=== PATIENT | male | born 1960 | race Caucasian/White ===

== ENCOUNTER → 2019-11-16 09:17 | Outpatient (BNVA) | payer MEDICAID, SELFPAY | PROVIDERS: PCP Nurse Practitioner Family; Visit Provider Specialist | DX: G40.219 Localization-related (focal) (partial) symptomatic epilepsy and epileptic syndromes with complex partial seizures, intractable, without status epilepticus (principal) | CPT/HCPCS: 99213 ==

== ENCOUNTER → 2020-05-23 08:23 | Outpatient (BNVA) | payer MEDICAID, SELFPAY | PROVIDERS: PCP Nurse Practitioner Family; Visit Provider Specialist | DX: G40.219 Localization-related (focal) (partial) symptomatic epilepsy and epileptic syndromes with complex partial seizures, intractable, without status epilepticus (principal) | CPT/HCPCS: 99213 ==

== ENCOUNTER 2020-10-27 15:57 | Emergency (ER) | payer MEDICAID, SELFPAY ==
[2020-10-27 16:05] VITALS: BP 163/75; PULSE 78; RESP 14; TEMP 36.9; O2SAT 99; BMI 32.4
--- NOTE | 2020-10-27 17:14 | XRR_ITS ---
PROCEDURE INFORMATION: Exam: XR Left Hip with Pelvis when Performed Exam date and time: 10/27/2020 5:42 PM Age: 60 years old Clinical indication: Hip pain; Left hip TECHNIQUE: Imaging protocol: XR Left hip with pelvis when performed. Views: 2 or 3 views. COMPARISON: CR Pelvis AP 1 or 2 views* [id number] 12/09/2018 3:13 PM FINDINGS: Bones/joints: Mild narrowing of the hip joint spaces. There are small marginal osteophytes across the hip joints. Soft tissues: Unremarkable. XR/XR hip LT 2-3V wo/w pel* [id number] IMPRESSION: There are primary osteoarthritic changes across the hip joints as described above. No evidence for acute fracture.
--- NOTE | 2020-10-27 17:14 | XRR_ITS ---
PROCEDURE INFORMATION: Exam: XR Left Knee Exam date and time: 10/27/2020 5:42 PM Age: 60 years old Clinical indication: Pain; Knee; Left TECHNIQUE: Imaging protocol: XR Left knee. Views: 3 views. COMPARISON: MRI Knee w/o LEFT* [id number] 05/14/2017 3:47 PM FINDINGS: Bones/joints: Fragmentation of the tibial tubercle is consistent with chronic [place]-Schlatter's disease. There are small marginal osteophytes across the medial joint compartment and patellofemoral joint. Soft tissues: There is pretibial soft tissue edema. XR/XR knee LT 3V* [id number] IMPRESSION: 1. Fragmentation of the tibial tubercle is consistent with chronic [place]-Schlatter's disease. There is pretibial soft tissue edema as well raising concern for acute on chronic Sagrario-Schlatter findings. Please correlate clinically. 2. There are primary osteoarthritic changes across the patellofemoral joint and medial joint compartment.
--- NOTE | 2020-10-27 17:14 | ED_ITS ---
HPI - Extremity Problem General: Chief complaint: Extremity Problem,Nontraumatic Stated complaint: Lt leg pain/no trama Time Seen by Provider: 10/27/20 17:03 Source: patient Mode of arrival: wheelchair Limitations: no limitations History of Present Illness: HPI Narrative: Patient is a 60-year-old male who presents to ED today for evaluation of left leg pain. He tells me he woke up this morning with pain to his posterior thigh. Patient tells me he was carrying wood and had just bent down and picked wood up and began walking when he states that his left leg felt like it was hit with a stun gun causing him to fall. He states when he got up and tried to walk he began having pain in the knee, posterior aspect of his thigh, and hip. Patient is not complaining currently of numbness/tingling or weakness. He does tell me he is being treated for sciatica in that left leg by his PCP Dr. Spicer. He states this feels different. He has not noticed any swelling. MD Complaint: extremity pain Onset (ago): hour(s) Pain Consistency: constant Location: left and lower extremity Radiation: none Relieving factors: immobilization Exacerbating factors: weight bearing and walking Associated symptoms: Reports no associated symptoms; Deny chest pain or fever(s) Review of Systems Const: Denies: fever(s) or chills Card: Denies: chest pain Resp: Denies: dyspnea Musc: Reports: extremity pain; Denies: neck pain, back pain, extremity swelling, joint pain, joint swelling, joint stiffness or muscle weakness Neuro: Denies: headache(s), numbness in extremities, weakness in extremities, sensory changes or dizziness [facility] ED PFSH: Family History Other CAD (coronary artery disease) Cancer Hypertension Denies family history of Diabetes Stroke Social History Smoking and tobacco status: never smoked Alcohol intake: current Alcohol intake frequency: few times a month History of recent travel: No Physical Exam Const: COMMON NORMALS: no acute distress, average body habitus, patient oriented x3, no limitations, healthy appearing, alert and well nourished GENERAL APPEARANCE: cooperative ORIENTATION/CONSCIOUSNESS: Yes awake, Yes oriented to person, Yes oriented to place and Yes oriented to time HENMT: COMMON NORMALS: normocephalic and atraumatic HEAD & SCALP: normocephalic and atraumatic Back/Pelvis: COMMON NORMALS: thoracic and lumbar spine normal to inspection, no thoracic nor lumbar tenderness and thoraco-lumbar ROM normal THORACIC SPINE/UPPER BACK: Yes normal to inspection and Yes thoracic ROM normal LUMBAR SPINE/LOWER BACK: Yes normal to inspection and Yes lumbar ROM normal PELVIS: Yes buttocks normal SACROILIAC JOINTS: Yes SI joints normal Extremity: COMMON NORMALS: normal to inspection and full ROM GENERAL: Yes normal exam except as noted OTHER: pt reports pain to knee/hip/posterior thigh; he does not have any SI tenderness; there is no swelling appreciated/no bruising; when he stands and puts pressure on his leg he states he feels like his knee is going to buckle Neuro: COMMON NORMALS: patient oriented x3, moves all extremities, no focal motor deficits and no sensory deficits noted SENSORIUM/ORIENTATION: Yes alert, Yes oriented to person, Yes oriented to place and Yes oriented to time MOTOR EXAM: 5/5 motor strength present throughout Skin: COMMON NORMALS: no rashes or lesions noted GENERAL SKIN EXAM: no rashes or lesions noted Course Vital Signs: Vital signs: Vital Signs Temperature 98.5 F 10/27/20 16:05 Pulse Rate 76 10/27/20 18:34 Respiratory Rate 18 10/27/20 18:34 Blood Pressure 146/85 10/27/20 18:34 Pulse Oximetry 98 10/27/20 18:34 MDM - Extremity (Nontraumatic) MDM Narrative: Medical decision making narrative: Pt has no swelling to leg. XRs are negative for fracture. Sensory intact. Patient maintains full strength to LE. He states he has no pain if he walks on the ball of his foot/heel. He states he has a cane but that isn't providing enough support. Patient will be provided a walker. He has a PCP appointment on Thursday he can use to follow up with. Imaging Data^: XR L knee: Radiologist's impression: [facility] [address] [place] [address] XRay Report Signed Patient: Kings Kothari Unit #: [id number] : 1960 Age/Sex: 60 / M ADM Date: 10/27/20 Loc: ER Room/Bed: Attending Dr: Ordering Provider/Ordering MD: Adrianne Way Date of Service: 10/27/20 Procedure(s): XR knee LT 3V* [id number] Accession Number(s): [id number] Report Number: [id number] PROCEDURE INFORMATION: Exam: XR Left Knee Exam date and time: 10/27/2020 5:42 PM Age: 60 years old Clinical indication: Pain; Knee; Left TECHNIQUE: Imaging protocol: XR Left knee. Views: 3 views. COMPARISON: MRI Knee w/o LEFT* [id number] 05/14/2017 3:47 PM FINDINGS: Bones/joints: Fragmentation of the tibial tubercle is consistent with chronic Midlothian-Schlatter's disease. There are small marginal osteophytes across the medial joint compartment and patellofemoral joint. Soft tissues: There is pretibial soft tissue edema. XR/XR knee LT 3V* [id number] IMPRESSION: 1. Fragmentation of the tibial tubercle is consistent with chronic Midlothian-Schlatter's disease. There is pretibial soft tissue edema as well raising concern for acute on chronic Midlothian-Schlatter findings. Please correlate clinically. 2. There are primary osteoarthritic changes across the patellofemoral joint and medial joint compartment. Dictated By: Hazel Alarcon MD Signed By: Hazel Alarcon MD Signed Date/Time: 10/27/201823 DD/ 22 XR L hip: Radiologist's impression: [address] [address] XRay Report Signed Patient: Kings Kothari Unit #: [id number] : 1960 Age/Sex: 60 / M ADM Date: 10/27/20 Loc: ER Room/Bed: Attending Dr: Ordering Provider/Ordering MD: Adrianne Way Date of Service: 10/27/20 Procedure(s): XR hip LT 2-3V wo/w pel* [id number] Accession Number(s): [id number] Report Number: [id number] PROCEDURE INFORMATION: Exam: XR Left Hip with Pelvis when Performed Exam date and time: 10/27/2020 5:42 PM Age: 60 years old Clinical indication: Hip pain; Left hip TECHNIQUE: Imaging protocol: XR Left hip with pelvis when performed. Views: 2 or 3 views. COMPARISON: CR Pelvis AP 1 or 2 views* [id number] 12/09/2018 3:13 PM FINDINGS: Bones/joints: Mild narrowing of the hip joint spaces. There are small marginal osteophytes across the hip joints. Soft tissues: Unremarkable. XR/XR hip LT 2-3V wo/w pel* [id number] IMPRESSION: There are primary osteoarthritic changes across the hip joints as described above. No evidence for acute fracture. Dictated By: Hazel Alarcon MD Signed By: Hazel Alarcon MD Signed Date/Time: 10/27/201819 DD/ 18 Discharge Plan Discharge Patient Disposition: Home Clinical Impression: Muscle strain of left thigh Qualifiers: Encounter type: initial encounter Qualified Code(s): S76.912A - Strain of unspecified muscles, fascia and tendons at thigh level, left thigh, initial encounter Condition: Stable Prescriptions: New ibuprofen 800 mg tablet 800 mg PO Q8H PRN (Reason: pain) Qty: 20 RF: 0 Medrol (Jordy) 4 mg tablets,dose pack See Rx Instructions .ROUTE .COMPLEX Qty: 21 RF: 0 No Action aspirin [Aspir-81] 81 mg tablet,delayed release (DR/EC) 81 mg PO DAILY RF: 0 simvastatin 40 mg tablet 40 mg PO DAILY RF: 0 lisinopril 20 mg tablet 20 mg PO DAILY RF: 0 metoprolol tartrate 25 mg tablet 25 mg PO DAILY RF: 0 clopidogrel [Plavix] 75 mg tablet 75 mg PO DAILY RF: 0 pantoprazole [Protonix] 40 mg tablet,delayed release (DR/EC) 40 mg PO DAILY RF: 0 duloxetine 20 mg capsule,delayed release(DR/EC) 20 mg PO DAILY RF: 0 sildenafil 25 mg tablet 25 mg PO DAILY PRNRF: 0 levetiracetam [Keppra XR] 500 mg tablet extended release 24 hr 2,500 mg PO DAILY Qty: 150 RF: 10 Discharge Orders: Discharge ED (Routine); Ordered 10/27/20 Ordered By: Adrianne Way Referrals: Harsha Russo NP [Primary Care Provider] - Patient Instructions: Muscle Strain (ED), Opioid Safety Activity Restrictions/Additional Instructions: [facility] is committed to fighting the nationwide opiate epidemic. We are providing ALL patients with information regarding opiate safety. If you received opiate pain medication during your stay or if you received a prescrip tion for opiate pain medication-please review this handout. If not, you may disregard. Thank you. As discussed use your walker at all times to help prevent falls. Please follow- up with your primary care provider at your scheduled appointment on Thursday. You may alternate heat and ice to the area of discomfort. I have given you a prescription for anti-inflammatory and steroid medication. Coding Level of Care Code ED Fermentation Operator for Nayely Fwshi Exam Detailed
[2020-10-27 18:34] VITALS: BP 146/85; PULSE 76; RESP 18; O2SAT 98
== END 2020-10-27 18:37 | disposition home or self-care (01) ==
PROVIDERS: Emergency Provider Physician Assistant; PCP Nurse Practitioner Family
DX: S76.912A Strain of unspecified muscles, fascia and tendons at thigh level, left thigh, initial encounter (principal); X58.XXXA Exposure to other specified factors, initial encounter
CPT/HCPCS: 73502; 73562; 99283

== ENCOUNTER → 2020-11-21 09:50 | Outpatient (BNVA) | payer MEDICAID, SELFPAY | PROVIDERS: PCP Nurse Practitioner Family; Referring Provider Nurse Practitioner Family; Visit Provider Orthopaedic Surgery | DX: M25.569 Pain in unspecified knee (principal) | CPT/HCPCS: 80500; 87070; 87205; 89051 ==

== ENCOUNTER 2020-12-19 10:53 | Outpatient (CLI) | payer MEDICAID, SELFPAY ==
--- NOTE | 2020-12-19 11:00 | MR_ITS ---
WS: [id number] MRI LEFT KNEE HISTORY: M25.462 - Effusion, left knee COMPARISON: 05/14/2017 Anterior cruciate ligament: Intact. Posterior cruciate ligament: Intact. Medial collateral ligament: Increased T2 signal on both sides of the MCL consistent with a mild sprai n. No tear identified. Posterior lateral corner structures: Intact. Medial menisci: Progression of intrasubstance degeneration in the posterior horn. No definite tear is identified. Lateral meniscus: Intact. Normal signal, size and shape. Extensor mechanism: Distal quadriceps tendon and patellar tendons are intact. Fluid and soft tissue: Large suprapatellar joint effusion with extension into the medial and lateral compartments. No Cristobal's cyst. Osseous and articular structures: Patellofemoral compartment: Very slight lateral subluxation of the patella. Progression of chondromal acia involving the patella. 7 mm defect along the patellar eminence towards the medial facet with und erlying marrow edema. Medial compartment: Moderate narrowing of the medial compartment. Thinning and fissuring of the carti lucas involving the condyle and tibial plateau with moderate progression since the prior study. There is also increasing marrow edema involving the tibial plateau and extending towards the posterior tibi a. Increasing marrow edema is also present in the femoral condyle associated with full-thickness cart ilage defect. Small joint line osteophytes. Lateral compartment: Mild narrowing of the lateral compartment. Minimal fissuring of the cartilage. MR/MR knee LT wo con* [id number] IMPRESSION: 1. Mild to moderate internal derangement medial compartment. Progression of ch ondromalacia and joint space narrowing with increasing marrow edema in the tib ial plateau and femoral condyle. 2. Mild MCL sprain. 3. Progression of chondromalacia at the patellar eminence towards the medial f acet and underlying subchondral cystic change. 4. Large joint effusion. 5. Progression of intrasubstance degeneration in the posterior medial meniscus .
== END 2020-12-19 10:54 | disposition home or self-care (01) ==
LOC: RADSHAW 10:56
PROVIDERS: PCP Nurse Practitioner Family; Visit Provider Orthopaedic Surgery
DX: M25.462 Effusion, left knee (principal); S83.412A Sprain of medial collateral ligament of left knee, initial encounter; M22.42 Chondromalacia patellae, left knee; M23.92 Unspecified internal derangement of left knee; X58.XXXA Exposure to other specified factors, initial encounter
CPT/HCPCS: 73721

== ENCOUNTER 2021-01-23 16:00 | Outpatient (CLI) | payer MEDICAID, SELFPAY ==
[2021-01-23 17:14] LABS: Erythrocyte Sedimentation Rate 11 mm/hr (0-10)
[2021-01-23 17:17] LABS: Alanine Aminotransferase 9 U/L (0-41); Albumin Level 4.5 g/dL (3.5-5.2); Alkaline Phosphatase 73 IU/L (40-130); Anion Gap 12.1 (5-19); Aspartate Amino Transferase 14 U/L (0-40); Blood Urea Nitrogen 10 mg/dL (8-23); Calcium 9.1 mg/dL (8.5-10.5); Carbon Dioxide 28 mmol/L (22-29); Chloride 101 mmol/L (98-107); Globulin 2.8 g/dL (1.3-4.6); Glomerular Filtration Rate 86.1 mL/min (90-130); Glucose 82 mg/dL (65-115); Osmolality Calculated 282 mOsm/kg (285-295); Potassium 4.1 mmol/L (3.5-5.1); Sodium 137 mmol/L (136-145); Total Bilirubin 0.6 mg/dL (0.15-1.2); Total Protein 7.3 g/dL (6.6-8.7)
[2021-01-24 13:47] LABS: Cyclic Citrullinated Peptide <16 UNITS
[2021-01-25 16:57] LABS: COMPLEMENT COMPONENT C3C 158 mg/dL (82-185); COMPLEMENT COMPONENT C4C 39 mg/dL (15-53); COMPLEMENT, TOTAL (CH50) >60 U/mL (31-60)
[2021-01-28 18:19] LABS: THYROID PEROXIDASE ANTIBODIES <1 IU/mL (<9)
[2021-01-29 12:33] LABS: CENTROMERE B ANTIBODY <1.0 NEG AI (<1.0 NEG); JO-1 ANTIBODY <1.0 NEG AI (<1.0 NEG); RNP ANTIBODY <1.0 NEG AI (<1.0 NEG); SCL-70 ANTIBODY <1.0 NEG AI (<1.0 NEG); SJOGREN'S ANTIBODY (SS-A) <1.0 NEG AI (<1.0 NEG); SM ANTIBODY <1.0 NEG AI (<1.0 NEG); SS-B <1.0 NEG AI (<1.0 NEG)
[2021-01-29 14:47] LABS: ANA SCREEN, IFA NEGATIVE (NEGATIVE)
== END 2021-01-23 16:01 | disposition home or self-care (01) ==
PROVIDERS: PCP Nurse Practitioner Family; Visit Provider Orthopaedic Surgery
DX: M25.462 Effusion, left knee (principal)
CPT/HCPCS: 36415; 80053; 85651; 86140; 86160; 86162; 86235; 86255; 86376; 86431

== ENCOUNTER → 2021-02-15 10:36 | Outpatient (BNVA) | payer MEDICAID, SELFPAY | PROVIDERS: PCP Nurse Practitioner Family; Visit Provider Internal Medicine | DX: M25.462 Effusion, left knee (principal); Z11.59 Encounter for screening for other viral diseases; F17.220 Nicotine dependence, chewing tobacco, uncomplicated | CPT/HCPCS: 99204 ==

== ENCOUNTER → 2021-02-18 14:29 | Outpatient (BNVA) | payer MEDICAID, SELFPAY | PROVIDERS: PCP Nurse Practitioner Family; Visit Provider Internal Medicine | DX: M17.12 Unilateral primary osteoarthritis, left knee (principal) | CPT/HCPCS: 36415 ==

== ENCOUNTER 2021-02-18 15:46 | Outpatient (CLI) | payer MEDICAID, SELFPAY ==
--- NOTE | 2021-02-18 16:10 | XRR_ITS ---
PROCEDURE INFORMATION: Exam: XR Left Hand Exam date and time: 02/18/2021 4:10 PM Age: 60 years old Clinical indication: Pain; Hand; Bilateral; Additional info: M25.462 - effusion, left knee TECHNIQUE: Imaging protocol: XR Left hand. Views: 3 or more views. COMPARISON: No relevant prior studies available. FINDINGS: Bones/joints: Mild degenerative changes of the 1st carpometacarpal, distal 2nd and 3rd interphalangeal joints, and 2nd and 3rd metacarpophalangeal joints. No fracture identified. Soft tissues: Normal. XR/XR hand LT 2V 22140 IMPRESSION: Scattered degenerative changes, most likely osteoarthritis.
--- NOTE | 2021-02-18 16:10 | XRR_ITS ---
PROCEDURE INFORMATION: Exam: XR Bilateral Sacroiliac Joints Exam date and time: 02/18/2021 4:10 PM Age: 60 years old Clinical indication: Pain in coccyx area; Additional info: L40.9 - psoriasis, unspecified TECHNIQUE: Imaging protocol: XR Bilateral XR of the sacroiliac joints. Views: 3 or more views. COMPARISON: CR XR hip LT 2-3V wo/w pel* [id number] 10/27/2020 5:28 PM FINDINGS: Bones/joints: The bones and SI joints are intact and in normal alignment. No ankylosis. Degenerative changes at L5-S1. Soft tissues: Normal. XR/XR sacroiliac jts m 3V [id number] IMPRESSION: 1. No acute finding.
--- NOTE | 2021-02-18 16:10 | XRR_ITS ---
PROCEDURE INFORMATION: Exam: XR Right Hand Exam date and time: 02/18/2021 4:10 PM Age: 60 years old Clinical indication: Pain; Hand; Bilateral; Additional info: M25.462 - effusion, left knee TECHNIQUE: Imaging protocol: XR Right hand. Views: 1 or 2 views. COMPARISON: CR Hand 3 views, RIGHT* [id number] 08/10/2014 2:50 PM FINDINGS: Bones/joints: Progressive degenerative changes of the 1st carpometacarpal, 3rd and 1st metacarpophalangeal, and 2nd and 3rd distal interphalangeal joints. No fracture identified. Soft tissues: Normal. XR/XR hand RT 2V [id number] IMPRESSION: 1. Progressive degenerative changes in multiple joints, most likely osteoarthritis.
== END 2021-02-18 15:47 | disposition home or self-care (01) ==
PROVIDERS: PCP Nurse Practitioner Family; Visit Provider Internal Medicine
DX: M25.462 Effusion, left knee (principal); L40.9 Psoriasis, unspecified
CPT/HCPCS: 72202; 73120; 81003; 82306; 82310; 82550; 82728; 83540; 83735; 83970; 84100; 84439; 84443; 84550; 86617; 86704; 86803; 86812; 87340

== ENCOUNTER → 2021-03-16 16:05 | Outpatient (BNVA) | payer MEDICAID, SELFPAY | PROVIDERS: PCP Nurse Practitioner Family; Visit Provider Orthopaedic Surgery | DX: Z20.822 Contact with and (suspected) exposure to COVID-19 (principal) | CPT/HCPCS: 87635 ==

== ENCOUNTER 2021-03-21 07:18 | Day surgery (SDC) | payer MEDICAID, SELFPAY ==
[2021-03-21] VITALS (7 sets, daily range): BP systolic 119–178; BP diastolic 79–104; PULSE 78–102; RESP 15–18; TEMP 36.7–37.1; O2SAT 96–100
--- NOTE | 2021-03-21 07:51 | W.PM.OPSUD ---
Surgery/Procedure H&P Update DATE OF PROCEDURE: March 21, 2021 DATE H&P PERFORMED: 03/13/21 PREOP DIAGNOSIS: Knee Effusion PLANNED PROCEDURE: Operation Date: 03/21/21 09:05 Proposed Procedures p left knee diagnostic arthroscopy and other indicated procedures 14231 m75.462(Left) - Ras Santo MD
[2021-03-21] MEDS: sodium chloride 0.9% 1,000 ML 30 ML IV (07:57)
--- NOTE | 2021-03-21 08:40 | ANES.PREANE2 ---
Pre-Anesthetic Assessment Pre-Anesthetic Assessment: Height/Weight: Height 1.68 m Temp Pulse Resp BP Pulse Ox 98.1 F 85 18 119/79 96 03/21/21 07:35 03/21/21 07:35 03/21/21 07:35 03/21/21 07:35 03/21/21 07:35 Preop Diagnosis: Knee Effusion Proposed Procedure: Operation Date: 03/21/21 09:05 Proposed Procedures p left knee diagnostic arthroscopy and other indicated procedures 65455 m75.462(Left) - Ras Santo MD Was Beta Darío taken within 24 hours: Yes Was Clonidine taken within 24 hours: N/A Last intake: Intake Last Liquid Date 03/20/21 Last Liquid Time 22:00 Last Solid Date 03/20/21 Last Solid Time 22:00 Social: Social History: No alcohol and No tobacco Exam: Pre-Anes Outpt Exam: alert, oriented x 3 and regular rate & rhythm Airway: Submandibular: WNL Cervical ROM: WNL MP: 2 Dentition: Chipped CV/HEM: CV/HEM: CAD (Stents) and CT GI: GI: GERD Metabolic: Metabolic: Hyperlipidemia Musc/skel: Musc/skel: OA/DJD Neuropsych: Neuropsych: Seizure Anesthetic Plan: ASA status: 3 Anesthesia: General Risk of > 500 ml blood loss (7ml/kg in children): No Meds/Allergies Current Medications: Current Medications Generic Name Dose Route Start Last Admin Trade Name Freq PRN Reason Stop Dose Admin Sodium Chloride 1,000 mls @ 30 ml s/hr 03/21/21 07:30 03/21/21 07:57 Sodium Chloride 0.9% IV 03/22/21 07:29 30 mls/hr .Q24H DOMENIC Administration PFSH Anesthesia PFSH: Family History Other CAD (coronary artery disease) Cancer Hypertension Denies family history of Diabetes Stroke Social History Smoking and tobacco status: current every day smoker smokeless tobacco Smokeless tobacco user: chewing tobacco Smokeless tobacco details: 1 pk Q2D Alcohol intake: current Alcohol intake frequency: few times a month History of recent travel: No Data Anesthesia Cardiac Studies: No Data to Display
[2021-03-21] MEDS: morphine 4 mg/mL SDV 1 mL 8 MG XX (09:42)
--- NOTE | 2021-03-21 10:06 | P.OP_ITS ---
Operative Report Date of procedure: March 21, 2021 Pre-op Diagnosis: Left knee Effusion Post-op diagnosis: same Post-op Diagnosis: Medial and lateral meniscal tears right, grade IV chondromalacia medial femoral condyle Post-op Findings: As above Procedure Done: Arthroscopic right medial and lateral meniscectomies, chondroplasty medial femoral condyle Pathology: none sent Surgeon: Ras Santo Anesthesia: General Estimated blood loss (mL): 0 Findings: Patient had a complex degenerative tear involving his meniscal root with a incompetent attachment and degenerative tear of the fifth central 50% e xtending through the posterior and middle third. He had exposed subchondral bone throughout the weightbearing aspect of the medial femoral condyle. He had degenerative tearing of the central 30% of the lateral meniscus Condition: stable Disposition: PACU Brief History: Mr. Kothari has had continued pain and effusions in the left knee without clear pathology on MRI. We will review his work-up included aspirations, injections, cells for crystals, and a rheumatology evaluation with no obvious etiology of the effusion identified Procedure: The patient was taken to the operating room and given a general anesthesia. A timeout was performed. He was prepped and draped in supine position with a tourniquet on the left thigh. The knee was infiltrated with 30 cc of 0.5% Marcaine with epi and 10 mg of morphine. The knee was entered through the standard inferior medial and inferior lateral portal. The diagnostic portion arthroscopy was performed. Initial fluid was sent for routine and anaerobic cultures and crystals. Utilizing a basket synovial biopsies were taken and sent to pathology. The above pathology was noted. Initial attention was paid to the posterior medial meniscus. While initially appearing intact with the probe it was found that there was complex degenerative changes and the root attachment was essentially incompetent. As significant chondromalacia was identified over the medial femoral condyle unfortunately patient was not thought to be a candidate for root repair. Utilizing a straight basket unstable flaps of meniscus in the posterior and middle third were removed with a basket and incisor shaver and stabilized with the Mcneil [employer] Nephew Werewolf probe. Approximately 50% of the posterior mid medial meniscus was removed. Other than debridement the root tear was not addressed. Incisor shaver and Mcneil [employer] Nephew Werewolf were then used to debride unstable flaps of peripheral cartilage over the medial femoral condyle but large areas of subchondral bone were identified which could not be remedied with arm arthroscopy. The scope was then moved to the lateral compartment with small central areas of degeneration being debrided back with an incisor shaver and werewolf probe. The knee was irrigated with saline. Portals were closed with 3-0 Prolene. Sterile dressings were applied. The patient was extubated and taken to the recovery room in stable condition
[2021-03-21 10:30] LABS: Crystals, Fluid SENT TO PATHOLOGY
[2021-03-21] MEDS: HYDROcodone-acetaminophen 5-325 mg Tablet 1 TAB PO (11:01)
--- NOTE | 2021-03-21 14:59 | ANE.PACU2 ---
Inpatient post-anesthesia follow up: Airway intact: Yes Vital signs: Temperature 98.6 F Pulse Rate 78 Respiratory Rate 18 Blood Pressure 131/82 Pulse Oximetry 100 Oxygen Delivery Me thod Room Air Oxygen Flow Rate 8 Fraction of Inspir ed Oxygen Hydration adequate: Yes Nausea and vomiting: No Pain level: 1 Mental status: Baseline
== END 2021-03-21 11:15 | disposition home or self-care (01) ==
PROVIDERS: PCP Nurse Practitioner Family; Visit Provider Orthopaedic Surgery
PROC: (CPT 29870; principal; 2021-03-21 08:55)
DX: S83.242A Other tear of medial meniscus, current injury, left knee, initial encounter (principal); S83.282A Other tear of lateral meniscus, current injury, left knee, initial encounter; M25.462 Effusion, left knee; M94.262 Chondromalacia, left knee; I25.10 Atherosclerotic heart disease of native coronary artery without angina pectoris; Z95.5 Presence of coronary angioplasty implant and graft; I25.2 Old myocardial infarction; E78.5 Hyperlipidemia, unspecified; M19.90 Unspecified osteoarthritis, unspecified site; I10 Essential (primary) hypertension; F17.220 Nicotine dependence, chewing tobacco, uncomplicated
CPT/HCPCS: 29880; 80500; 87070; 87075; 87205; 88305; 96365; J0330; J0690; J2270; J2405; J2704; J3010; J3490; J7030

== ENCOUNTER → 2021-04-09 09:30 | Day surgery (SDC) | payer MEDICAID, SELFPAY | PROVIDERS: PCP Nurse Practitioner Family; Visit Provider Orthopaedic Surgery | DX: Z01.818 Encounter for other preprocedural examination (principal); M17.12 Unilateral primary osteoarthritis, left knee | CPT/HCPCS: 93005 ==

== ENCOUNTER → 2021-04-19 11:10 | Outpatient (BNVA) | payer MEDICAID, SELFPAY | PROVIDERS: PCP Nurse Practitioner Family; Visit Provider Orthopaedic Surgery | DX: Z01.812 Encounter for preprocedural laboratory examination (principal); Z20.822 Contact with and (suspected) exposure to COVID-19 | CPT/HCPCS: 87635 ==

== ENCOUNTER 2021-04-25 12:46 | Observation (INO) | payer MEDICAID, SELFPAY ==
[2021-04-09 09:16] VITALS: BMI 31.9
--- NOTE | 2021-04-09 09:21 | ANES.PREANE2 ---
Pre-Anesthetic Assessment Pre-Anesthetic Assessment: Height/Weight: Height 1.68 m Weight 89.811 kg Preop Diagnosis: Osteoarthritis Left knee Proposed Procedure: Operation Date: 04/25/21 10:25 Proposed Procedures p Total Knee Arthroplasty 10030 M17.12(Left) - Ras Santo MD Familial anesthetic complications: none Social: Social History: No alcohol and No tobacco Exam: Pre-Anes Outpt Exam: alert, oriented x 3, clear to auscultation bilaterally and regular rate & rhythm Airway: Cervical ROM: WNL (fusion) MP: 2 Dentition: Full CV/HEM: CV/HEM: CAD (on plavix), HTN and AL (1999 with stents placed) GI: GI: GERD Metabolic: Metabolic: Hyperlipidemia Musc/skel: Musc/skel: Lower Back Pain and OA/DJD Neuropsych: Neuropsych: Seizure (keppra - epilepsy, last seizure november 08, usually partial sometimes tonic clonic) Anesthetic Plan: ASA status: 3 Anesthesia: General and Regional (specify below) Other: spinal + adductor if stops plavix Risk of > 500 ml blood loss (7ml/kg in children): Yes, adequate IV access and fluids planned PFSH Anesthesia PFSH: Family History Other CAD (coronary artery disease) Cancer Hypertension Denies family history of Diabetes Stroke Social History Smoking and tobacco status: current every day smoker smokeless tobacco Smokeless tobacco user: chewing tobacco Smokeless tobacco details: 1 pk Q2D Alcohol intake: current Alcohol intake frequency: few times a month History of recent travel: No Data Anesthesia Cardiac Studies: No Data to Display
--- NOTE | 2021-04-09 09:30 | ECG_ITS ---
[facility] Test Date: 2021-04-09 Pat Name: Kings Kothari Department: Room: Gender: Male Traveling Electrician: : 1960 Requested By: Camila Banegas Order Number: [id number] Germain MD: Gissell Chiu M.D. Measurements Intervals [place] Rate: 63 P: 24 TX: 159 QRS: -32 QRSD: 96 T: 87 QT: 383 QTc: 394 Interpretive Statements SINUS RHYTHM LEFT AXIS DEVIATION [QRS AXIS < -30] LOW QRS VOLTAGE IN PRECORDIAL LEADS [QRS DEFLECTION < 1.0 mV IN CHEST LEADS] INCOMPLETE RIGHT BUNDLE BRANCH BLOCK [90+ ms QRS DURATION, TERMINAL R IN V1/V2, 40+ ms S IN I/aVL/V4/V5/V6] POSSIBLE ANTERIOR MYOCARDIAL INFARCTION , PROBABLY OLD [30 ms Q WAVE IN V3/V4, OR R < 0.2 mV IN V4] Compared to ECG 11/08/2015 09:01:36 Left-axis deviation now present Low QRS voltage now present Incomplete right bundle-branch block now present T-wave abnormality no longer present Possible ischemia no longer present Myocardial infarct finding still present Electronically Signed On 04-09-2021 16:42:17 CDT by Gissell Chiu M.D. [id number]
[2021-04-09 09:56] LABS: Basophils # 0.1 10^3/uL (0.0-0.1); Basophils % 0.9 %; Eosinophils # 0.2 10^3/uL (0.0-0.8); Eosinophils % 2.7 %; Hematocrit 43.1 % (42.0-52.0); Lymphocytes # 1.6 10^3/uL (0.8-4.8); Lymphocytes % 28.8 %; Mean Corpuscular HGB Conc 34.8 g/dL (30.0-36.0); Mean Corpuscular Hemoglobin 32.4 pg (28.0-34.0); Mean Corpuscular Volume 93.1 fl (80-94); Mean Platelet Volume 9.5 fL (7.4-10.4); Monocytes # 0.5 10^3/uL (0.2-0.9); Monocytes % 8.1 %; Neutrophils # 3.32 10^3/uL (1.8-7.7); Neutrophils % 58.8 %; Nucleated Red Blood Cells % 0 %; Platelet Count 250 10^3/cmm (130-400); Red Blood Count 4.63 10^6/uL (4.1-5.3); Red Cell Distribution Width 11.6 % (12.1-15.1); White Blood Count 5.7 10^3/uL (4.0-10.0)
[2021-04-09 10:13] LABS: Alanine Aminotransferase 10 U/L (0-41); Albumin Level 4.2 g/dL (3.5-5.2); Alkaline Phosphatase 83 IU/L (40-130); Anion Gap 12.7 (5-19); Aspartate Amino Transferase 11 U/L (0-40); Blood Urea Nitrogen 11 mg/dL (8-23); Calcium 8.8 mg/dL (8.5-10.5); Carbon Dioxide 27 mmol/L (22-29); Chloride 103 mmol/L (98-107); Globulin 2.8 g/dL (1.3-4.6); Glomerular Filtration Rate 76.2 mL/min (90-130); Glucose 109 mg/dL (65-115); Osmolality Calculated 286 mOsm/kg (285-295); Potassium 4.7 mmol/L (3.5-5.1); Sodium 138 mmol/L (136-145); Total Bilirubin 0.3 mg/dL (0.15-1.2)
[2021-04-25] VITALS (32 sets, daily range): BP systolic 103–132; BP diastolic 68–81; PULSE 64–91; RESP 8–20; TEMP 36.1–37.1; O2SAT 91–98
[2021-04-25] MEDS: acetaminophen 500 mg Tablet 1000 MG PO ×2 (06:12→16:39)
[2021-04-25] MEDS: CELEcoxib 200 mg Capsule 400 MG PO (06:13)
[2021-04-25] MEDS: gabapentin 300 mg Capsule PO (06:13)
[2021-04-25] MEDS: oxyCODONE 20 mg ER (12 HR) Tablet PO (06:14)
[2021-04-25] MEDS: sodium chloride 0.9% 1,000 ML 30 ML IV (06:14)
--- NOTE | 2021-04-25 06:55 | P.ANESUD_ITS ---
Pre-Anesthetic Update Pre-Anesthetic Assessment: Date of Surgery/Procedure: 04/25/21 Preop Debbi gnosis: Osteoarthritis Left knee Proposed Procedure: Operation Date: 04/25/21 07:00 Proposed Procedures p Total Knee Arthroplasty 64193 M17.12(Left) - Ras Santo MD Any changes to Pre-Anesthetic Assessment?: Yes Last Intake: Intake Last Liquid Date 04/24/21 Last Liquid Time 22:30 Last Solid Date 04/24/21 Last Solid Time 19:30 Vitals: Temperature 97 F L 04/25/21 05:47 Temperature Source Temporal Artery S can 04/25/21 05:47 Pulse Rate 76 04/25/21 05:47 Respiratory Rate 18 04/25/21 05:47 Blood Pressure 132/81 04/25/21 05:47 Blood Pressure Shea n 98 04/25/21 05:47 Pulse Oximetry 98 04/25/21 05:47 Oxygen Delivery Me thod 04/25/21 05:47 Exam: Pre-Anes Outpt Exam: alert, oriented x 3, clear to auscultation bilaterally and regular rate & rhythm Cardiac Studies: No Data to Display
--- NOTE | 2021-04-25 07:21 | W.PM.OPSUD ---
Surgery/Procedure H&P Update DATE OF PROCEDURE: April 25, 2021 DATE H&P PERFORMED: 04/03/21 H&P UPDATE INFORMATION: I have reviewed H&P completed within last 30 days, I have examined patient prior to procedure and No changes to prior documentation PREOP DIAGNOSIS: Osteoarthritis Left knee PLANNED PROCEDURE: Operation Date: 04/25/21 07:00 Proposed Procedures p Total Knee Arthroplasty 66534 M17.12(Left) - Ras Santo MD
[2021-04-25] MEDS: EPINEPHrine 1 mg/mL INJ IM (07:59)
[2021-04-25] MEDS: ketorolac 30 mg/mL INJ IM (07:59)
[2021-04-25] MEDS: tranexamic acid 1,000 mg/10mL SDV 1000 MG IRRIGATION (08:00)
--- NOTE | 2021-04-25 08:56 | PM.OP ---
Operative Report Date of procedure: April 25, 2021 Pre-op Diagnosis: Osteoarthritis Left knee Post-op diagnosis: same Post-op Findings: Same Procedure Done: Left total knee arthroplasty Pathology: none sent Surgeon: Ras Santo Anesthesia: Nerve Block (Spinal, adductor canal block) Estimated blood loss (mL): 100 Complications: None Findings: The patient had exposed subchondral bone over the medial femoral condyle and medial tibial plateau Condition: stable Disposition: PACU Brief History: Mr. Kothari is a 60-year-old male with left knee pain and effusions. He underwent diagnostic arthroscopy and was found to have degenerative changes the medial compartment and a meniscal root tear. He was not thought to be a candidate for meniscal repair with degenerative changes and is brought back to the operating room for total knee replacement Procedure: The patient was taken to the operating room. Patient was given 1 g of tranexamic acid . The above anesthesia provided by the anesthesia service. A timeout was performed. The patient was prepped and draped in the usual fashion with the lower extremity exposed. A anterior incision was made, midline, from a point proximal to the patella to the distal tibial tubercle. The knee was entered through a medial parapatellar approach. The patella could be displaced laterally and the knee flexed. The patellar fat pad was resected to provide better visibility. Retractors were placed medially and laterally adjacent to the tibial plateau. The femoral canal was drilled in line with the longitudinal axis of the femur. Intramedullary femoral guide for used to make a distal femoral cut in 5 degrees of valgus, resecting 8 mm from the more prominent condyle. Next the extra medullary tibial guide was placed in alignment with the longitudinal axis of the tibia. The cutting guides were set to remove just over 9 mm from the high tibial plateau. The proximal tibia was then cut. The femoral measuring guide was then placed over the distal femur. Rotation was verified checking the relationship of the guide to the condyle and the trochlear groove. The femur was measured and cut for the desired femoral component. The desired tibial baseplate was then chosen. A trial reduction with the femur tibial baseplate and polyethylene was done, assuring that the knee was stable throughout full motion. Ligament balancing ball of the release of the deep medial collateral ligament..The tibia was prepared for the tibial baseplate. The patella revealed minimal chondromalacia and tracked well and patellar resurfacing was not done. Surfaces were cleaned with a gentamicin/tranexamic acid solution. The femur and tibia andwere then press-fit into place. The posterior capsule and collateral ligaments were then injected with a solution of 100 mL of 0.2% ropivacaine, 1 mL of a 1:1000 epinephrine solution, 30 mg of Toradol, and 1 g of tranexamic acid. final polyethylene component was then snapped into place into the tibia. The extensor retinaculum was closed with a running 1 Stratafix.. The subcutaneous tissues were closed with 2-0 Vicryl and the skin was closed with a running 3-0 Stratafix. The wound was covered with a Dermabond Prinio dressing. It was covered with 4xrs and a compressive Tubigauae was applied. The patient was taken to recovery room in stable condition. Iddiction total knee arthroplasty components were used includin) Size 4 Triathalon cruciate retaining femoral component 2) Size 4 Tritanium tibial component 3) Size 4/9 mm thickness CR tibial bearing insert
--- NOTE | 2021-04-25 09:03 | XR_ITS ---
WS: [id number] Left knee, AP and lateral views, 04/25/2021 Clinical Data: Left Total knee arthroplasty Comparison: Left knee, 10/27/2020. Findings: Left knee arthroplasty is in good position. No loosening is noted. There is air in the joint space wh ich may be from recent surgery. There is fragmentation of the tibial tubercle unchanged. There are no fractures or dislocations. XR/XR knee LT 1-2V 14634 Impression: 1. Intact left knee arthroplasty. 2. Air in the left knee joint from recent surgery or other intervention.
--- NOTE | 2021-04-25 09:10 | SUR.PHASEI ---
PT AWAKES TO VOICE X RAY HERE, PT DENIES PAIN AND NAUSEA, PT HAD SPINAL ANESTHESIA, PT STATES NORMAL SENSATION TO T-7 , PT LT FOOT WITH STRONG REGULAR PULSE NOTED AND MARKED LT KNEE DRESSING D/I WITH FIRST ICE TO SITE. PT SLEEPS WITH GOOD RESP EFFORT ON RA IF NOT DISTURBED.
--- NOTE | 2021-04-25 09:21 | SUR.PHASEI ---
SPINAL LEVEL NOW ASSESSED AT T -12 PER PT STATES NORMAL SENSATION , BUT PT UNABLE TO MOVE TOES OR THIGHS YET, HOB AT 25 DEGREES VSS.
[2021-04-25] MEDS: oxyCODONE 5 mg IR Tab/Cap PO ×2 (12:45→16:38)
--- NOTE | 2021-04-25 14:58 | ANES.PROC ---
Anesthesia Procedures Procedure/Date: 04/25/21 Nerve Block ^: Nerve Block 1: Main Anesthesia: spinal anesthesia block Time Out Performed: Yes Consent: requested by attending/covering physician, from patient and patient agrees to proceed Nerve block location: adductor canal (L) Anesthesia monitors applied: pulse oximetry, EKG, BP cuff and oxygen Nerve block position: supine Anesthetic Used: ropivicaine 0.5% and with decadron (4 mg) Amount of anesthesia used (mL): 30 Ultrasound used to: recognize landmarks and visualize and ID femerol nerve Nerve Stimulator Used?: No Interscalene/Femoral BLK: 4 stimuplex 21 g needle used for position and inplane approach, visualize local anesthetic spread and no vascular puncture identified Injection: neg aspiration of heme Patient Tolerated Procedure: well and no complications Complications: none
--- NOTE | 2021-04-25 16:31 | PM.DCS ---
Discharge Providers Date of Admission: 04/25/21 12:46 Date of Discharge: April 25, 2021 Attending Provider at Admission: Ras Santo MD Attending Provider at Discharge: Ras Santo MD Primary Care Provider: Harsha Russo NP Diagnoses at Discharge Discharge Diagnosis (1) Status post total left knee replacement: Status: Acute (2) Osteoarthritis of left knee: Status: Resolved (3) Effusion, left knee: Status: Resolved Reason for Visit Reason for Visit: osteoarthritsis Hospital Course Hospital Course Mr. Kothari was admitted for elective. He did very well the day of surgery. He is up with a walker and independent with exercises the day of surgery. His pain was under adequate control. He was thought stable for discharge on that day. He was managed with aspirin and foot pumps in the hospital for DVT prophylaxis. Physical Exam Narrative: EXAM NARRATIVE: On the day of discharge his knee incision was clean. They had no drainage. There is minimal swelling in the thigh and knee and the calf. No distal neurovascular deficits were noted Discharge Data Data Completed and Pending: Completed Studies During Hospitalization Category Date Time Status XR knee LT 1-2V 7 3560 Routine Exams 04/25/21 09:03 Completed Pending at discharge Category Date Time Status Hemoglobin AM LAB S Lab 04/26/21 04:00 Ordered Vitals: Last Vital Signs Temp 98.2 F 04/25/21 16:02 Pulse 68 04/25/21 16:02 Resp 16 04/25/21 16:02 BP 108/69 04/25/21 16:02 Pulse Ox 95 04/25/21 16:02 Discharge Plan Discharge Patient Disposition: Home Condition: Stable Prescriptions: New oxycodone 5 mg Tablet 5 mg PO Q4H PRN (Reason: Moderate Pain) 7 Days Qty: 40 RF: 0 acetaminophen 500 mg Tablet 1,000 mg PO Q8H 14 Days Qty: 84 RF: 0 gabapentin 300 mg Capsule 300 mg PO BID 7 Days Qty: 14 RF: 0 celecoxib 200 mg Capsule 200 mg PO Q12H 14 Days Qty: 28 RF: 0 Continued aspirin [Aspir-81] 81 mg tablet,delayed release (DR/EC) 81 mg PO DAILY RF: 0 simvastatin 40 mg tablet 40 mg PO DAILY RF: 0 lisinopril 20 mg tablet 20 mg PO DAILY RF: 0 metoprolol tartrate 25 mg tablet 25 mg PO DAILY RF: 0 clopidogrel [Plavix] 75 mg tablet 75 mg PO DAILY RF: 0 pantoprazole [Protonix] 40 mg tablet,delayed release (DR/EC) 40 mg PO DAILY RF: 0 duloxetine 20 mg capsule,delayed release(DR/EC) 20 mg PO DAILY RF: 0 sildenafil 25 mg tablet 25 mg PO DAILY PRN (Reason: Erectile Dysfunction) RF: 0 diclofenac sodium [Voltaren] 1 % gel 2 g topical QID Qty: 100 RF: 0 mupirocin 2 % ointment 1 applic topical BID Qty: 22 RF: 0 levetiracetam [Keppra XR] 500 mg tablet extended release 24 hr 1,250 mg PO BID RF: 0 Discontinued acetaminophen [Tylenol] 325 mg capsule 325 mg PO QID PRN (Reason: Pain) RF: 0 hydrocodone-acetaminophen 5-325 mg tablet 1 tab PO Q4H Qty: 30 RF: 0 Discharge Orders: Discharge Order (Routine); Ordered 04/25/21 Ordered By: Ras Santo Referrals: Ras Santo MD [Physician] - 1-3 days (04/30/2021) Discharge Diet: Advance as tolerated Discharge Activity: Increase activity as tolerated and Limit activity as instructed Patient Instructions: Opioid Safety Activity Restrictions/Additional Instructions: Okay to shower Keep Tubigauze sleeve in place for swelling. Okay to remove for hygiene. Apply FirstIce up to 20 min/hr for pain and swelling Take Celebrex twice a day for the next 15 days for pain , discontinue other anti-inflammatories Take Neurontin twice a day for 7 days. Take Tylenol 500mg (1-2 tabs) as needed 3 times a day for mild pain take oxycodone for breakthrough pain. Exercises per physical therapy. May weight-bear as tolerated on total knee arthroplasty Discharge Attestations Time Spent in Discharge Care*: other Quality Metrics Clinical Quality Measures During this hospital stay, did patient experience: None Coding Level of Care Code [facility] note Diagnoses Status post total left knee replacement Z96.652 Osteoarthritis of left knee M17.12 Effusion, left knee M25.462
--- NOTE | 2021-04-25 19:05 | ANE.PACU2 ---
Inpatient post-anesthesia follow up: Airway intact: Yes Vital signs: Temperature 98.2 F Pulse Rate 68 Respiratory Rate 14 Blood Pressure 108/69 Pulse Oximetry 95 Oxygen Delivery Me thod Room Air Oxygen Flow Rate Fraction of Inspir ed Oxygen Hydration adequate: Yes Nausea and vomiting: No Pain level: 2 Mental status: Baseline
--- NOTE | 2021-04-26 10:22 | PC.SOCIAL ---
discharge follow up call made. spoke with patients . patient is having a lot of pain and swelling. went over all pain medications and to keep knee elevated and use first ice. patient has follow up appointment with Dr. Santo scheduled.
== END 2021-04-25 17:54 | disposition home or self-care (01) ==
LOC: MEDSURG 12:46
PROVIDERS: Anesthesiology; Admitting Provider Orthopaedic Surgery; PCP Nurse Practitioner Family; Visit Provider Orthopaedic Surgery
PROC: (CPT 27447; principal; 2021-04-25 07:00)
DX: M17.12 Unilateral primary osteoarthritis, left knee (principal); I25.10 Atherosclerotic heart disease of native coronary artery without angina pectoris; Z79.02 Long term (current) use of antithrombotics/antiplatelets; I10 Essential (primary) hypertension; I25.2 Old myocardial infarction; Z95.5 Presence of coronary angioplasty implant and graft; K21.9 Gastro-esophageal reflux disease without esophagitis; E78.5 Hyperlipidemia, unspecified; F17.220 Nicotine dependence, chewing tobacco, uncomplicated; Z79.82 Long term (current) use of aspirin
CPT/HCPCS: 27447; 73560; 80053; 85025; 97110; 97116; 97161; C1776; G0378; J0171; J0690; J1580; J1885; J2795; J7030

== ENCOUNTER → 2021-05-22 08:10 | Outpatient (BNVA) | payer MEDICAID, SELFPAY | PROVIDERS: PCP Nurse Practitioner Family; Visit Provider Specialist | DX: G40.219 Localization-related (focal) (partial) symptomatic epilepsy and epileptic syndromes with complex partial seizures, intractable, without status epilepticus (principal) | CPT/HCPCS: 99213 ==

== ENCOUNTER → 2021-05-28 08:07 | Outpatient (BNVA) | payer MEDICAID, SELFPAY | PROVIDERS: PCP Nurse Practitioner Family; Visit Provider Orthopaedic Surgery | DX: Z48.89 Encounter for other specified surgical aftercare (principal); Z96.652 Presence of left artificial knee joint | CPT/HCPCS: 73560; 73565 ==

== ENCOUNTER 2021-10-14 15:29 | Emergency (ER) | payer MEDICAID, SELFPAY ==
[2021-10-14 15:46] VITALS: BP 153/93; PULSE 78; RESP 16; TEMP 36.8; O2SAT 97; BMI 34.3
[2021-10-14 15:54] VITALS: BP 153/93; PULSE 78; RESP 16; TEMP 36.8; O2SAT 97
--- NOTE | 2021-10-14 16:07 | CTR_ITS ---
PROCEDURE INFORMATION: Exam: CT Cervical Spine Without Contrast Exam date and time: 10/14/2021 4:07 PM Age: 61 years old Clinical indication: Injury or trauma; Other: Tree branch fell on PT head. ; Blunt trauma TECHNIQUE: Imaging protocol: Computed tomography images of the cervical spine without contrast. Radiation optimization: All CT scans at this facility use at least one of these dose optimization techniques: automated exposure control; mA and/or kV adjustment per patient size (includes targeted exams where dose is matched to clinical indication); or iterative reconstruction. COMPARISON: CT head wo con* [id number] 10/14/2021 4:51 PM RADIATION DOSE METRICS: Total DLP (mGy-cm): 705.8 FINDINGS: Vertebrae: C4-C6 anterior cervical fusion changes are noted. Moderate degenerative changes are observed in the cervical spine. No area of significant canal stenosis. No acute fracture is detected. Spinal alignment is normal. Soft tissues: Unremarkable. Lungs: Lung apices are normal. CT/CT cervical spin wo con* [id number] IMPRESSION: No cervical spine fracture.
--- NOTE | 2021-10-14 16:07 | CTR_ITS ---
PROCEDURE INFORMATION: Exam: CT Head Without Contrast Exam date and time: 10/14/2021 4:07 PM Age: 61 years old Clinical indication: Injury or trauma; Other: Limb fell on his head. ; Blunt trauma (contusions or hematomas); Without loss of consciousness; Injury details: Tree limb fell on PT head. Lac to top of head. TECHNIQUE: Imaging protocol: Computed tomography of the head without contrast. Radiation optimization: All CT scans at this facility use at least one of these dose optimization techniques: automated exposure control; mA and/or kV adjustment per patient size (includes targeted exams where dose is matched to clinical indication); or iterative reconstruction. COMPARISON: CT head wo con* [id number] 11/16/2016 1:27 PM RADIATION DOSE METRICS: Total DLP (mGy-cm): 1000.64 FINDINGS: Brain: Mild atrophy and mild white matter chronic microvascular changes are noted. No hemorrhage or evidence of acute infarction. Cerebral ventricles: No ventriculomegaly. Paranasal sinuses: Visualized sinuses are unremarkable. No fluid levels. Mastoid air cells: Visualized mastoid air cells are well aerated. Bones/joints: Unremarkable. No acute fracture. Soft tissues: Soft tissue swelling and skin talya are present in the right parietal scalp. CT/CT head wo con* [id number] IMPRESSION: No acute intracranial abnormality.
--- NOTE | 2021-10-14 16:07 | W.ED.HEATRA ---
Documented by User: [email or web address] Epps 10/14/21 16:26 HPI - Head Injury General: Chief complaint: Wound/Laceration Stated complaint: head lac Time Seen by Provider: 10/14/21 15:36 Source: patient and family Mode of arrival: ambulatory Limitations: no limitations History of Present Illness: Patient is a nice 61-year-old male who presents to ED today along with his for concerns of a scalp laceration/head injury. Patient states they were cutting tree limbs when a limb fell onto his head causing a laceration. No LOC. He does complain of a headache and neck pain. No other injuries or complaints at this time. Last tetanus is unknown. MD Complaint: head injury Onset (ago): hour(s) Place: home Loss of Consciousness: no Radiation: none Other Injuries: none Context: other anticoagulant use (plavix) Associated symptoms: Reports neck pain; Deny confusion, nausea, vertigo or vomiting Review of Systems Eyes: Denies: change in vision Card: Denies: chest pain Resp: Denies: dyspnea GI: Denies: nausea or vomiting Musc: Reports: neck pain; Denies: back pain, extremity pain or joint pain Skin/Breast: Reports: other (scalp laceration) Neuro: Reports: headache(s); Denies: numbness in extremities, weakness in extremities, sensory changes, lack of coordination, difficulty walking, dizziness, vertigo, confusion, behavioral changes, Slurred speech present, difficulty communicating thoughts or seizure-like activity [facility] ED PFSH: Family History Other CAD (coronary artery disease) Cancer Hypertension Denies family history of Diabetes Stroke Social History Alcohol intake: current Alcohol intake frequency: few times a month History of recent travel: No Physical Exam Const: COMMON NORMALS: no acute distress, patient oriented x3, no limitations, alert and well nourished GENERAL APPEARANCE: cooperative ORIENTATION/CONSCIOUSNESS: Yes awake, Yes oriented to person, Yes oriented to place and Yes oriented to time HENMT: COMMON NORMALS: normocephalic HEAD & SCALP: normocephalic HEAD IMAGES: 1. 4.0cm scalp laceration; bleeding controlled FACE & SINUS: normal facial exam Eye: COMMON NORMALS: Equal, round and reactive pupils present and EOMs intact bilaterally GENERAL EYE: appearance normal, both eyes and all related structures PUPIL: Yes Equal, round and reactive pupils present Neck/C-Spine: COMMON NORMALS: full ROM CERVICAL SPINE: Yes pain with cervical ROM, Yes Cervical spine tenderness (mid c spine), No step off deformity and Yes Paracervical muscle tenderness right Back/Pelvis: COMMON NORMALS: thoracic and lumbar spine normal to inspection, no thoracic nor lumbar tenderness and thoraco-lumbar ROM normal Extremity: GENERAL: Yes normal exam except as noted Neuro: SHAVON COMA SCALE: document GCS findings Shavon coma scale eye opening: Spontaneous Shavon coma scale verbal response: Orientated [place] coma scale motor response: Obey commands [place] coma scale total score: 15 COMMON NORMALS: patient oriented x3, CN's II-XII intact bilaterally, moves all extremities, no focal motor deficits, no sensory deficits noted and gait normal SENSORIUM/ORIENTATION: Yes alert, Yes oriented to person, Yes oriented to place and Yes oriented to time Procedures Laceration Laceration 1: Site: scalp Side (If applicable): right Size (cm): 4.0 Description: linear Depth: simple, single layer Local Anesthetic: lidocaine 1% Amount of anesthesia used (mL): 9.0 Pre-repair: wound explored and irrigated extensively Skin layer closed with: other (jackie) Number of sutures: 8 Course Vital Signs: Vital signs: Vital Signs Temperature 98.2 F 10/14/21 15:54 Pulse Rate 78 10/14/21 15:54 Respiratory Rate 16 10/14/21 15:54 Blood Pressure 153/93 10/14/21 15:54 Pulse Oximetry 97 10/14/21 15:54 MDM - Head Injury Lab Data Radiology Impressions Cervical Spine CT 10/14/21 16:07 IMPRESSION: No cervical spine fracture. Head CT 10/14/21 16:07 IMPRESSION: No acute intracranial abnormality. Discharge Plan Discharge Patient Disposition: Home Clinical Impression: Head injury due to trauma Qualifiers: Encounter type: initial encounter Qualified Code(s): S09.90XA - Unspecified injury of head, initial encounter Laceration of scalp Qualifiers: Encounter type: initial encounter Qualified Code(s): S01.01XA - Laceration without foreign body of scalp, initial encounter Condition: Stable Prescriptions: No Action aspirin [Aspir-81] 81 mg tablet,delayed release (DR/EC) 81 mg PO DAILY 0RF simvastatin 40 mg tablet 40 mg PO DAILY 0RF lisinopril 20 mg tablet 20 mg PO DAILY 0RF metoprolol tartrate 25 mg tablet 25 mg PO DAILY 0RF clopidogrel [Plavix] 75 mg tablet 75 mg PO DAILY 0RF pantoprazole [Protonix] 40 mg tablet,delayed release (DR/EC) 40 mg PO DAILY 0RF duloxetine 20 mg capsule,delayed release(DR/EC) 20 mg PO DAILY 0RF sildenafil 25 mg tablet 25 mg PO DAILY PRN (Reason: Erectile Dysfunction) 0RF hydrocodone-acetaminophen 5-325 mg tablet 1 tab PO Q4H PRN0RF levetiracetam [Keppra XR] 500 mg tablet extended release 24 hr 1,250 mg PO BID Qty: 450 3RF (DME) Shower Chair See Rx Instructions .Route .MEDSUPPLY Qty: 1 0RF Rx Instructions: As directed hydrocodone-acetaminophen 5-325 mg tablet 1 tab PO Q4H PRN (Reason: pain) 7 Days Qty: 30 0RF Discharge Orders: Discharge ED (Routine); Ordered 10/14/21 Ordered By: Franklin Hood Referrals: Harsha Russo NP [Primary Care Provider] - Discharge Diet: Usual diet Discharge Activity: Increase activity as tolerated Patient Instructions: Laceration (ED), Head Injury (ED) Activity Restrictions/Additional Instructions: Keep wound as dry as possible for next 48 hours. Activity as tolerated. You should not be alone for the next 24 hours. Follow-up with primary care in 3 days for recheck. Return to the ER for worsening symptoms, increase in seizure activity, unresponsiveness, or persistent vomiting. [place] need to be removed in 5 to 7 days. Stand Alone Forms: Work/School Release Sign Out Sign Out Data: Patient Sign Out occurred on 10/14/21 at 16:59. Patient's care was discussed, and care was transferred from to Franklin Hood. Post-Handoff Eval: Patient is resting well. Denies any concerns. We are awaiting CT for the head and cervical spine results. Coding Level of Care Code ED [employer] L[employer] Technician for Chg Fwd Exam Detailed Documented by User: KAREN Avery 10/14/21 17:59 HPI - Head Injury General: Chief complaint: Wound/Laceration Stated complaint: head lac Time Seen by Provider: 10/14/21 15:36 PFSH ED PFSH: Family History Other CAD (coronary artery disease) Cancer Hypertension Denies family history of Diabetes Stroke Social History Alcohol intake: current Alcohol intake frequency: few times a month History of recent travel: No Physical Exam HENMT: HEAD IMAGES: 1. 4.0cm scalp laceration; bleeding controlled Neuro: SHAVON COMA SCALE: document GCS findings [place] coma scale total score: 15 Course Vital Signs: Vital signs: Vital Signs Temperature 98.2 F 10/14/21 15:54 Pulse Rate 78 10/14/21 15:54 Respiratory Rate 16 10/14/21 15:54 Blood Pressure 153/93 10/14/21 15:54 Pulse Oximetry 97 10/14/21 15:54 MDM - Head Injury Medcial Decision Making 61-year-old male patient comes in today for injury to the head. Patient was working clearing brush when a limb from the tree struck him in the top of the head. Patient has a scalp laceration to the right frontal scalp. Patient appears well. Patient is alert oriented. No palpable skull fracture is noted. Skin is warm and dry. Respirations are even. Vital signs are normal except for some elevation in blood pressure. Differential diagnosis includes skull fracture, scalp laceration, intracranial bleeding. CT of the head indicated no intracranial bleeding or skull fracture. CT of the cervical spine was negative for any acute abnormality. Wound was repaired with jackie. Patient tolerated well. Patient was recommended to follow-up with primary care for staple removal in 1 week. Patient reported understanding of care plan need for follow-up or return to the ER. Lab Data Radiology Impressions Cervical Spine CT 10/14/21 16:07 IMPRESSION: No cervical spine fracture. Head CT 10/14/21 16:07 IMPRESSION: No acute intracranial abnormality. Discharge Plan Discharge Patient Disposition: Home Clinical Impression: Head injury due to trauma Qualifiers: Encounter type: initial encounter Qualified Code(s): S09.90XA - Unspecified injury of head, initial encounter Laceration of scalp Qualifiers: Encounter type: initial encounter Qualified Code(s): S01.01XA - Laceration without foreign body of scalp, initial encounter Condition: Stable Prescriptions: No Action aspirin [Aspir-81] 81 mg tablet,delayed release (DR/EC) 81 mg PO DAILY 0RF simvastatin 40 mg tablet 40 mg PO DAILY 0RF lisinopril 20 mg tablet 20 mg PO DAILY 0RF metoprolol tartrate 25 mg tablet 25 mg PO DAILY 0RF clopidogrel [Plavix] 75 mg tablet 75 mg PO DAILY 0RF pantoprazole [Protonix] 40 mg tablet,delayed release (DR/EC) 40 mg PO DAILY 0RF duloxetine 20 mg capsule,delayed release(DR/EC) 20 mg PO DAILY 0RF sildenafil 25 mg tablet 25 mg PO DAILY PRN (Reason: Erectile Dysfunction) 0RF hydrocodone-acetaminophen 5-325 mg tablet 1 tab PO Q4H PRN0RF levetiracetam [Keppra XR] 500 mg tablet extended release 24 hr 1,250 mg PO BID Qty: 450 3RF (DME) Shower Chair See Rx Instructions .Route .MEDSUPPLY Qty: 1 0RF Rx Instructions: As directed hydrocodone-acetaminophen 5-325 mg tablet 1 tab PO Q4H PRN (Reason: pain) 7 Days Qty: 30 0RF Discharge Orders: Discharge ED (Routine); Ordered 10/14/21 Ordered By: Franklin Hood Referrals: Harsha Russo NP [Primary Care Provider] - Discharge Diet: Usual diet Discharge Activity: Increase activity as tolerated Patient Instructions: Laceration (ED), Head Injury (ED) Activity Restrictions/Additional Instructions: Keep wound as dry as possible for next 48 hours. Activity as tolerated. You should not be alone for the next 24 hours. Follow-up with primary care in 3 days for recheck. Return to the ER for worsening symptoms, increase in seizure activity, unresponsiveness, or persistent vomiting. [place] need to be removed in 5 to 7 days. Stand Alone Forms: Work/School Release Sign Out Sign Out Data: Patient Sign Out occurred on 10/14/21 at 16:59. Patient's care was discussed, and care was transferred from to Franklin Hood. Post-Handoff Eval: Patient is resting well. Denies any concerns. We are awaiting CT for the head and cervical spine results. Coding Level of Care Code ED [employer] L[employer] Technician for [place] Fwd Exam Detailed
[2021-10-14] MEDS: tetanus-diphtheria tox (adult) 0.5 mL SDV IM (16:21)
--- NOTE | 2021-10-23 10:53 | PC.NURSE ---
Returned today 10/23/21 to remove 8 talya. 8 talya removed, wound intact and no bleeding.
== END 2021-10-14 18:01 | disposition home or self-care (01) ==
PROVIDERS: Emergency Provider Nurse Practitioner Family; PCP Nurse Practitioner Family
DX: S01.01XA Laceration without foreign body of scalp, initial encounter (principal); S09.90XA Unspecified injury of head, initial encounter; Z79.82 Long term (current) use of aspirin; Z79.02 Long term (current) use of antithrombotics/antiplatelets; Z23 Encounter for immunization; W20.8XXA Other cause of strike by thrown, projected or falling object, initial encounter
CPT/HCPCS: 12002; 70450; 72125; 90471; 90714; 99283

== ENCOUNTER 2022-02-05 13:12 | Outpatient (CLI) | payer MEDICAID, SELFPAY ==
--- NOTE | 2022-02-05 13:25 | XR_ITS ---
WS: [id number] Lumbar spine, 7 views, AP, L5-S1 spot, both obliques, lateral and flexion, extension and neutral posi tion, 02/05/2022 Clinical Data: OTHER LOW BACK PAIN Comparison: Lumbar spine, 12/09/2018. Findings: No compression fractures or subluxation is seen. There is moderate to severe anterior osteoarthritic change of all the lumbar vertebral bodies. There is multilevel disc narrowing especially at L1-L2, L2 -L3 and L5-S1.The transverse processes and SI joints are unremarkable. On flexion and extension there is limitation of motion but no subluxation. The oblique films show no spondylolysis. XR/XR lumbar spine 6V w f/e [id number] Impression: 1. Moderate to severe osteoarthritis of the lower thoracic and all lumbar verte bral bodies. 2. Multilevel degenerative disc narrowing. 3. Negative for spondylolysis. 4. Limitation of motion but no subluxation on flexion and extension.
== END 2022-02-05 13:13 | disposition home or self-care (01) ==
LOC: RAD 13:13
PROVIDERS: PCP Nurse Practitioner Family; Visit Provider Family Medicine
DX: M54.59 Other low back pain (principal)
CPT/HCPCS: 72114

== ENCOUNTER → 2022-03-03 12:45 | Outpatient (BNVA) | payer MEDICAID, SELFPAY | PROVIDERS: PCP Nurse Practitioner Family; Referring Provider Specialist; Visit Provider Specialist | DX: G40.219 Localization-related (focal) (partial) symptomatic epilepsy and epileptic syndromes with complex partial seizures, intractable, without status epilepticus (principal); G40.419 Other generalized epilepsy and epileptic syndromes, intractable, without status epilepticus | CPT/HCPCS: 95816 ==

== ENCOUNTER 2022-03-13 10:07 | Outpatient (CLI) | payer MEDICAID, SELFPAY ==
--- NOTE | 2022-03-13 10:15 | MR_ITS ---
WS: [id number] MRI LUMBAR SPINE NONCONTRAST HISTORY: LUMBAR SPINE OSTEOARTHRITIS, LOW BACK PAIN COMPARISON: 06/30/2008 TECHNIQUE: Sagittal and axial multisequence imaging is submitted. Cervical fusion hardware. Mild central stenosis at C3-4. Straightening and mild curvature of the lumbar spine. Progression of degenerative disc disease and sp ondylosis since 2007. Moderate disc space narrowing and desiccation throughout the lumbar spine. No acute fracture or marro w edema. 3 mm retrolisthesis of L2. Conus terminates normally at L1-2 disc level. L1-L2: Diffuse annular disc bulging with moderate ligamentum flavum and facet arthritis. Mild bilater al foraminal stenosis. L2-L3: Moderate diffuse annular disc bulging with a effacement of the ventral CSF. Moderate ligamentu m flavum and facet arthritis. Encroachment into the central canal and lateral recess by disc and oste ophyte disease. Moderate central with bilateral subarticular recess encroachment upon the traversing L3 nerve roots. Mild foraminal stenosis. Mild progression of stenosis since the prior study. L3-L4: Moderate annular disc bulging and osteophytic ridging with moderate ligamentum flavum and face t arthritis encroaching into the thecal sac. Moderate central, bilateral subarticular recess and mild foraminal stenosis. Encroachment most significant upon the traversing L4 nerve roots. L4-L5: Diffuse annular disc bulging and osteophytic ridging with moderate ligamentum flavum and facet arthritis. Mild central, bilateral subarticular recess and foraminal stenosis. L5-S1: Diffuse annular disc bulging with marked ligamentum flavum and facet arthritis. Increased soft tissue in the LEFT foramen. Suspect there is probably a disc protrusion. Progressed since the prior study per Near complete effacement of fat in the RIGHT foramen. There is complete effacement of fat i n the LEFT foramen. Paravertebral soft tissues are negative. MR/MR lumbar spine wo con* [id number] IMPRESSION: 1. Moderate progression of spondylitic and degenerative changes throughout the lumbar spine since 2007. 2. Severe LEFT foraminal stenosis at L5-S1. Combination of disc and possible p rotrusion with facet and ligamentum flavum hypertrophy. 3. Moderate RIGHT foraminal stenosis at L5-S1 with disc contacting the exiting L5 nerve root. 4. Moderate central and bilateral subarticular recess stenosis at L2-3 and L3- 4. 5. Bilateral mild foraminal stenosis at L1-2, L2-3, L3-4. 6. Mild central, bilateral subarticular recess and foraminal stenosis at L4-5.
== END 2022-03-13 10:08 | disposition home or self-care (01) ==
PROVIDERS: PCP Nurse Practitioner Family; Visit Provider Family Medicine
DX: M47.896 Other spondylosis, lumbar region (principal); M54.50 Low back pain, unspecified; M48.07 Spinal stenosis, lumbosacral region; M48.061 Spinal stenosis, lumbar region without neurogenic claudication
CPT/HCPCS: 72148

== ENCOUNTER → 2022-03-20 08:16 | Outpatient (BNVA) | payer MEDICAID, SELFPAY | PROVIDERS: PCP Nurse Practitioner Family; Visit Provider Orthopaedic Surgery | DX: M54.50 Low back pain, unspecified (principal); M79.606 Pain in leg, unspecified | CPT/HCPCS: 99204 ==

== ENCOUNTER → 2022-04-15 09:44 | Outpatient (BNVA) | payer MEDICAID, SELFPAY | PROVIDERS: PCP Nurse Practitioner Family; Visit Provider Anesthesiology Pain Medicine | DX: M51.16 Intervertebral disc disorders with radiculopathy, lumbar region (principal); M47.816 Spondylosis without myelopathy or radiculopathy, lumbar region; M48.061 Spinal stenosis, lumbar region without neurogenic claudication; M79.604 Pain in right leg; M79.605 Pain in left leg; Z79.891 Long term (current) use of opiate analgesic | CPT/HCPCS: 99204 ==

== ENCOUNTER 2022-05-01 06:00 | Outpatient (RCR) | payer MEDICAID, SELFPAY | END 2022-05-23 23:59 | disposition home or self-care (01) | LOC: SPT 06:00 | PROVIDERS: PCP Nurse Practitioner Family; Visit Provider Orthopaedic Surgery | DX: M48.061 Spinal stenosis, lumbar region without neurogenic claudication (principal); M54.50 Low back pain, unspecified; G89.29 Other chronic pain | CPT/HCPCS: 97110; 97161 ==

== ENCOUNTER → 2022-05-21 09:19 | Outpatient (BNVA) | payer MEDICAID, SELFPAY | PROVIDERS: PCP Nurse Practitioner Family; Visit Provider Specialist | DX: G40.219 Localization-related (focal) (partial) symptomatic epilepsy and epileptic syndromes with complex partial seizures, intractable, without status epilepticus (principal) | CPT/HCPCS: 99214 ==

== ENCOUNTER 2022-05-24 06:00 | Outpatient (RCR) | payer MEDICAID, SELFPAY | END 2022-06-23 23:59 | disposition home or self-care (01) | LOC: SPT 06:00 | PROVIDERS: PCP Nurse Practitioner Family; Visit Provider Orthopaedic Surgery | DX: M48.061 Spinal stenosis, lumbar region without neurogenic claudication (principal); M54.50 Low back pain, unspecified; G89.29 Other chronic pain | CPT/HCPCS: 97110 ==

== ENCOUNTER → 2022-06-16 09:53 | Outpatient (BNVA) | payer MEDICAID, SELFPAY | PROVIDERS: PCP Nurse Practitioner Family; Visit Provider Anesthesiology Pain Medicine | DX: M51.16 Intervertebral disc disorders with radiculopathy, lumbar region (principal); M47.816 Spondylosis without myelopathy or radiculopathy, lumbar region; M48.061 Spinal stenosis, lumbar region without neurogenic claudication; M79.604 Pain in right leg; M79.605 Pain in left leg | CPT/HCPCS: 99213 ==

== ENCOUNTER 2022-06-24 06:00 | Outpatient (RCR) | payer MEDICAID, SELFPAY | END 2022-07-23 23:59 | disposition home or self-care (01) | LOC: SPT 06:00 | PROVIDERS: PCP Nurse Practitioner Family; Visit Provider Orthopaedic Surgery | DX: M48.061 Spinal stenosis, lumbar region without neurogenic claudication (principal); M54.50 Low back pain, unspecified; G89.29 Other chronic pain | CPT/HCPCS: 97110 ==

== ENCOUNTER → 2022-11-18 10:40 | Outpatient (BNVA) | payer MEDICAID, SELFPAY | PROVIDERS: PCP Family Medicine; Visit Provider Specialist | DX: M51.16 Intervertebral disc disorders with radiculopathy, lumbar region (principal); M47.816 Spondylosis without myelopathy or radiculopathy, lumbar region; M48.061 Spinal stenosis, lumbar region without neurogenic claudication; R20.2 Paresthesia of skin; G40.109 Localization-related (focal) (partial) symptomatic epilepsy and epileptic syndromes with simple partial seizures, not intractable, without status epilepticus; M18.9 Osteoarthritis of first carpometacarpal joint, unspecified; M79.604 Pain in right leg | CPT/HCPCS: 99214 ==

== ENCOUNTER 2022-12-10 15:43 | Outpatient (CLI) | payer MEDICAID, SELFPAY ==
--- NOTE | 2022-12-10 16:00 | MR_ITS ---
WS: [id number] MRI CERVICAL SPINE NONCONTRAST TECHNIQUE: Sagittal T1, T2 and STIR imaging. Axial T2, gradient, and fiesta imaging. CLINICAL INFORMATION: M54.12 - Radiculopathy, cervical region COMPARISON: CT October 14, [address] myelogram 2012 FINDINGS: Straightening of the normal cervical lordosis. ACDF C4-C6. Grade 1 anterolisthesis C7 on T1 measuring 4.3 mm. C2-C3: Moderate facet arthropathy. Mild LEFT greater than RIGHT bony foraminal narrowing. Small LEFT facet effusion. C3-C4: Disc osteophyte protrusion with indentation on cervical cord. Moderate central canal stenosis. This is progressed compared to the prior examinations. Moderate bilateral bony foraminal narrowing. Moderate facet arthropathy with facet synovitis. C4-C5: ACDF. Moderate LEFT and mild RIGHT bony foraminal narrowing. Spinal canal is patent. C5-C6: ACDF. Osteophytic osteophytic ridging. Severe LEFT and moderate RIGHT bony foraminal narrowing . Mild central canal stenosis. Mild facet arthropathy. C6-C7: ACDF. Mild disc bulging with mild central canal stenosis and slight contact of the cervical co rd. Moderate to severe bilateral bony foraminal narrowing. Mild facet arthropathy. C7-T1: Grade 1 anterolisthesis C7 on T1. Moderate LEFT bony foraminal narrowing. Mild RIGHT bony fora zac narrowing. RIGHT dorsal osteophyte with slight indentation RIGHT dorsal cervical cord. Mild marcella tral canal stenosis. Visualized brain stem structures: Normal. Prevertebral soft tissues: Normal. MR/MR cervical spin wo con* [id number] IMPRESSION: 1. Straightening of the normal cervical lordosis. Grade 1 anterolisthesis C7 o n T1 progressed compared to the prior studies. 2. ACDF C4-C6. 3. Central disc protrusion C3-C4 with moderate central canal stenosis progress ed compared to the prior studies indentation slight flattening of the cervical cord. 4. Mild central canal stenosis C4-C5 C5-C6 and C6-C7. 5. LEFT facet synovitis suggests 3 and C3-C4 with periarticular edema. 6. Multilevel moderate bony foraminal narrowing bilateral C3-C4, LEFT C4-C5, b ilateral C5-C6 and moderate to severe bilateral C6-C7.
== END 2022-12-10 15:44 | disposition home or self-care (01) ==
LOC: RAD 15:45
PROVIDERS: PCP Family Medicine; Visit Provider Anesthesiology Pain Medicine
DX: M54.12 Radiculopathy, cervical region (principal); M50.223 Other cervical disc displacement at C6-C7 level
CPT/HCPCS: 72141

== ENCOUNTER → 2023-11-10 13:57 | Outpatient (BNVA) | payer MEDICAID, SELFPAY | PROVIDERS: PCP Family Medicine; Visit Provider Specialist | DX: G40.109 Localization-related (focal) (partial) symptomatic epilepsy and epileptic syndromes with simple partial seizures, not intractable, without status epilepticus (principal) | CPT/HCPCS: 99213 ==

== ENCOUNTER → 2023-12-23 15:24 | Outpatient (BNVA) | payer MEDICAID, SELFPAY | PROVIDERS: PCP Family Medicine; Referring Provider Family Medicine; Visit Provider Internal Medicine Cardiovascular Disease | DX: R07.9 Chest pain, unspecified (principal); I25.10 Atherosclerotic heart disease of native coronary artery without angina pectoris; I10 Essential (primary) hypertension; E78.5 Hyperlipidemia, unspecified; R61 Generalized hyperhidrosis; R94.31 Abnormal electrocardiogram [ECG] [EKG] | CPT/HCPCS: 93005; 99204 ==

== ENCOUNTER 2024-01-07 08:53 | Outpatient (CLI) | payer MEDICAID, SELFPAY ==
--- NOTE | 2024-01-07 09:11 | NMCV_ITS ---
NM mathew perf SPECT r/s* [id number] Kings Kothari Age: 63 Gender: M : 1960 Exam Date: 01/07/2024 09:11 Ordering Phys: Susan Givens MD ([email or web address]) Technologist: NATALIA Lehman Exam Location: [facility] Indications: CORONARY ANGIOPLASTY STATUS STRESS TEST Please see separate stress test report in [facility] for full findings IMAGE PROTOCOL Rest/Stress 1 Lexiscan Day Radiopharmaceutical Dose (mCi) Administration Site Administered by Rest: Tc-99m IV NATALIA Ayers Sestamibi Stress:Tc-99m 32.4 IV NATALIA Ayers Sestamibi Rest: 07-Jan-2024 60 Discovery 630 Stress: 07-Jan-2024 30 Discovery 630 0.4mg Lexiscan. Images obtained in supine and prone position. SPECT RESULTS Technical Quality: Excellent Raw Data Analysis: Normal Image Corrections: No attenuation or motion correction applied Summed Stress Score: 16 Summed Rest Score: 13 Summed Difference Score: 3 PERFUSION FINDINGS Moderate area of moderate to severely decreased tracer uptake in the mid and apical anterior, mid anterolateral, apical lateral, apical septal and LV apex. Subtle areas of reversibility was noted in the mid anterior, anterolateral and apical lateral regions FUNCTIONAL RESULTS (calculated via Gated SPECT) Stress Image LV EF (%): 60 Stress EDV (mL):124 TID: 1.05 Stress ESV (mL):50 FUNCTIONAL FINDINGS: Segmental wall motion analysis revealed mild diffuse hypokinesia of the LV apex IMPRESSIONS 1. Myocardial perfusion imaging revealing moderate area of moderate to severely decreased tracer uptake involving the anterior, anterolateral knee and apical segments with some small areas of reversibility, suggesting myocardial scarring with subtle areas of ischemia in the distribution of the left anterior descending artery/circumflex artery. 2. Normal LV ejection fraction of 60%. 3. LV wall motion analysis revealed mild diffuse hypokinesis LV apex. 4. Mildly dilated LV cavity No similar previous studies are available for comparison Dr Susan Givens MD FACC (Electronically Signed) Final Date: 07 Jan 2024 18:00 S
--- NOTE | 2024-01-07 09:11 | ECG_ITS ---
[facility] Test Date: 2024-01-07 Pat Name: Kings Kothari Department: Room: Gender: Male Manager Wind: : 1960 Requested By: Susan Givens Order Number: [id number] Marcellus MD: Susan Givens M.D. Interpretive Statements NAME OF STUDY: LEXISCAN SESTAMIBI STRESS TEST INDICATION: ASHD, PROCEDURE: At the baseline, the EKG revealed sinus bradycardia with poor R wave progression. Possible old septal MD. Some nonspecific T wave changes.. The baseline heart was 59 bpm with a blood pressue of 124/77 mm of Hg Lexiscan was infused over a period of 20 seconds. A total of 0.4 milligrams of Lexiscan was infused. The stress phase was continued for a total of 5 minutes. Heart rate at the end of the stress phase was 74 bpm with a blood pressure 115/73 mm of Hg. The EKG at the peak infusion revealed no significant changes. Sestamibi was injected 20 seconds after the Lexiscan infusion. Heart rate at the end of the recovery phase was 74 bpm with a blood pressure of 121/77 mm of Hg. CONCLUSION: 1. No significant EKG changes with the LexiScan infusion 2. No LexiScan induced chest pain or cardiac arrhythmia 3. Normal blood pressure and heart rate response 4. Sestamibi/sestamibi perfusion scan pending; see separate report. Electronically Signed On 01-09-2024 13:29:55 CDT by Susan Givens M.D. [email or web address]
[2024-01-07 09:12] VITALS: BMI 33.3
[2024-01-07] MEDS: regadenoson 0.4 Mg/5 ml Syringe 0.400000000000000022 MG IVP (10:32)
[2024-01-07 10:45] VITALS: BP 121/77; PULSE 74
== END 2024-01-07 08:54 | disposition home or self-care (01) ==
PROVIDERS: PCP Family Medicine; Visit Provider Internal Medicine Cardiovascular Disease
DX: Z98.61 Coronary angioplasty status (principal)
CPT/HCPCS: 36415; 78452; 93017; 96374; A9500; J2785

== ENCOUNTER → 2024-04-14 09:28 | Outpatient (BNVA) | payer MEDICAID, SELFPAY | PROVIDERS: PCP Family Medicine; Referring Provider Family Medicine; Visit Provider Surgery | DX: Z12.11 Encounter for screening for malignant neoplasm of colon (principal); Z86.010 Personal history of colon polyps | CPT/HCPCS: 99024; 99204 ==

== ENCOUNTER 2024-05-25 05:57 | Day surgery (SDC) | payer MEDICAID, SELFPAY ==
[2024-05-25 06:13] VITALS: BP 130/76; PULSE 83; RESP 16; TEMP 36.7; O2SAT 97; BMI 30.7
[2024-05-25] MEDS: sodium chloride 0.9% 1,000 ML 30 ML IV (06:19)
--- NOTE | 2024-05-25 06:59 | P.ANESASSM_ITS ---
Pre-Anesthetic Assessment Height/Weight: Height 1.68 m Weight 86.183 kg Temp Pulse Resp BP Pulse Ox O2 Del Method 98.1 F 83 16 130/76 97 Room Air 05/25/24 06:13 05/25/24 06:13 05/25/24 06:13 05/25/24 06:13 05/25/24 06:13 05/25/24 06:13 Preop Diagnosis: screening Operation Date: 05/25/24 07:00 Proposed Procedures p Colonoscopy - 25151, G0105, Z12.11(Not Applicable) - Nilesh Shearer, Familial anesthetic complications: states get chilled after anesthesia, reports no fevers Was Beta Darío taken within 24 hours: N/A Was Clonidine taken within 24 hours: N/A Last intake: Intake Last Liquid Date 05/24/24 Last Liquid Time 20:00 Last Solid Date 05/23/24 Last Solid Time 19:00 Social Tobacco (chews- last used 9pm) and No alcohol (occasional) Exam alert and oriented x 3 Airway Submandibular: within normal limits Cervical ROM: within normal limits Mallampati: Class IV Dentition: full History/ROS No significant history except as noted Pulmonary None reported CV/HEM Coronary Artery Disease, Hypertension and Myocardial Infarction (reports SC with stent in 1999. 2013 restented same location. on plavix- took 1 week ago.) None reported Hepatic None reported GI Gastroesophageal Reflux Disease Metabolic Hyperlipidemia [facility] [place] None reported Neuropsych Seizure (epilepsy, last seizure about a year ago) Anesthetic Plan ASA status: 3 Anesthesia: Anesthesia Evaluation, General and MAC Risk of > 500 ml blood loss (7ml/kg in children): No Medications/Allergies Home Medications Medication Instructions Recorded Confirmed Last Taken Type aspirin 81 mg tablet,delayed 81 mg PO DAILY 11/16/19 05/25/24 05/24/24 History release (Aspir-) clopidogrel 75 mg tablet (Plavix) 75 mg PO DAILY 11/16/19 05/25/24 05/18/24 History duloxetine 20 mg capsule,delayed 20 mg PO DAILY 11/16/19 05/25/24 05/24/24 History release lisinopril 20 mg tablet 20 mg PO DAILY 11/16/19 05/25/24 05/24/24 History metoprolol tartrate 25 mg tablet 25 mg PO DAILY 11/16/19 05/25/24 05/25/24 History pantoprazole 40 mg tablet,delayed 40 mg PO DAILY 11/16/19 05/23/24 05/23/24 History release (Protonix) sildenafil 25 mg tablet 25 mg PO DAILY PRN Erectile 11/16/19 05/23/24 Unknown History Dysfunction simvastatin 40 mg tablet 40 mg PO DAILY 11/16/19 05/23/24 05/23/24 History Shower Chair #1 ea 04/30/21 05/23/24 Unknown Rx acetaminophen 500 mg tablet 500 mg PO Q6H PRN Pain (Scale 11/18/22 05/25/24 Unknown History (Tylenol Extra Strength) Score 1-3) gabapentin 600 mg tablet 600 mg PO BID 90 days #180 tabs 11/10/23 05/25/24 05/25/24 Rx levetiracetam 500 mg 1,500 mg (3 x 500 mg) PO BID #540 11/10/23 05/25/24 05/25/24 Rx tablet,extended release 24 hr tabs (Keppra XR) Allergies Allergy/AdvReac Type Severity Reaction Status Date / Time Penicillins Allergy rash Verified 04/14/24 09:40 Current Medications Generic Name Dose Route Start Last Admin Trade Name Freq PRN Reason Stop Dose Admin Sodium Chloride 1,000 mls @ 30 mls/hr 05/25/24 06:00 05/25/24 06:19 Sodium Chloride 0.9% IV 05/26/24 05:59 30 mls/hr .Q24H DOMENIC Administration PFSH Anesthesia Medical History (Updated 04/14/24 @ 10:25 by Nilesh Shearer DO) History of colon polyps Hypertension Myocardial infarction Surgical History History of neck surgery Hx of knee surgery Hx of heart surgery History of surgery on arm Family History Other CAD (coronary artery disease) Cancer Hypertension Denies family history of Diabetes Stroke Social History Smoking and tobacco/nicotine status: never used tobacco/nicotine Second hand smoke exposure: Yes Alcohol intake: current Alcohol intake frequency: few times a month Alcohol type: beer Substance/Drug Use: never Data Anesthesia Cardiac Studies: Sestamibi Stress Test (Cardiology) 01/06
--- NOTE | 2024-05-25 06:59 | PM.HP ---
Providers/Chief Complaint Primary Care Provider: Merle Pan DO Chief Complaint: Z12.11 History of Present Illness Kings Kothari is a 63 year old male Review of Systems General: Reports: 10 or more systems reviewed and unremarkable except in HPI and below Medications/Allergies Home Medications Medication Instructions Recorded Confirmed Last Taken Type aspirin 81 mg tablet,delayed 81 mg PO DAILY 11/16/19 05/25/24 05/24/24 History release (Aspir-) clopidogrel 75 mg tablet (Plavix) 75 mg PO DAILY 11/16/19 05/25/24 05/18/24 History duloxetine 20 mg capsule,delayed 20 mg PO DAILY 11/16/19 05/25/24 05/24/24 History release lisinopril 20 mg tablet 20 mg PO DAILY 11/16/19 05/25/24 05/24/24 History metoprolol tartrate 25 mg tablet 25 mg PO DAILY 11/16/19 05/25/24 05/25/24 History pantoprazole 40 mg tablet,delayed 40 mg PO DAILY 11/16/19 05/23/24 05/23/24 History release (Protonix) sildenafil 25 mg tablet 25 mg PO DAILY PRN Erectile 11/16/19 05/23/24 Unknown History Dysfunction simvastatin 40 mg tablet 40 mg PO DAILY 11/16/19 05/23/24 05/23/24 History Shower Chair #1 ea 04/30/21 05/23/24 Unknown Rx acetaminophen 500 mg tablet 500 mg PO Q6H PRN Pain (Scale 11/18/22 05/25/24 Unknown History (Tylenol Extra Strength) Score 1-3) gabapentin 600 mg tablet 600 mg PO BID 90 days #180 tabs 11/10/23 05/25/24 05/25/24 Rx levetiracetam 500 mg 1,500 mg (3 x 500 mg) PO BID #540 11/10/23 05/25/24 05/25/24 Rx tablet,extended release 24 hr tabs (Keppra XR) Allergies Allergy/AdvReac Type Severity Reaction Status Date / Time Penicillins Allergy rash Verified 04/14/24 09:40 PFSH Acute PFSH: Medical History (Updated 04/14/24 @ 10:25 by Nilesh Shearer DO) History of colon polyps Hypertension Myocardial infarction Surgical History History of neck surgery Hx of knee surgery Hx of heart surgery History of surgery on arm Family History Other CAD (coronary artery disease) Cancer Hypertension Denies family history of Diabetes Stroke Social History Smoking and tobacco/nicotine status: never used tobacco/nicotine Second hand smoke exposure: Yes Alcohol intake: current Alcohol intake frequency: few times a month Alcohol type: beer Substance/Drug Use: never Vitals/I&O/Wt Last Vital Signs Temp 98.1 F 05/25/24 06:13 Pulse 83 05/25/24 06:13 Resp 16 05/25/24 06:13 BP 130/76 05/25/24 06:13 Pulse Ox 97 05/25/24 06:13 O2 Del Method Room Air 05/25/24 06:13 Weight last 48 hrs Weight 190 lb A&P Assessment and plan (1) History of colon polyps: Plan Screening colonoscopy Attestations Medical Necessity Statement*: Home Coding Level of Care Code Acute Code for Chg Fwd Diagnoses History of colon polyps Z86.010
[2024-05-25 07:16] VITALS: BP 97/64; PULSE 71; RESP 16; TEMP 36.1; O2SAT 95
[2024-05-25 07:21] VITALS: BP 100/67; PULSE 70; RESP 16; O2SAT 94
[2024-05-25 07:31] VITALS: BP 119/77; PULSE 69; RESP 18; O2SAT 99
--- NOTE | 2024-05-25 07:40 | ANE.PACU2 ---
Inpatient post-anesthesia follow up: Airway intact: Yes Vital signs: Temperature 97.0 F Pulse Rate 69 Respiratory Rate 18 Blood Pressure 119/77 Pulse Oximetry 99 Oxygen Delivery Me thod Room Air Oxygen Flow Rate Fraction of Inspir ed Oxygen Hydration adequate: Yes Nausea and vomiting: No Pain level: 1 Mental status: Baseline
== END 2024-05-25 07:58 | disposition home or self-care (01) ==
PROVIDERS: PCP Family Medicine; Visit Provider Surgery
PROC: 0DJD8ZZ Inspection of Lower Intestinal Tract, Via Natural or Artificial Opening Endoscopic (ICD-10-PCS; CPT 45378; principal; 2024-05-25 07:00)
DX: Z12.11 Encounter for screening for malignant neoplasm of colon (principal); Z79.82 Long term (current) use of aspirin; Z86.0100 Personal history of colon polyps, unspecified; I10 Essential (primary) hypertension; I25.2 Old myocardial infarction; F17.220 Nicotine dependence, chewing tobacco, uncomplicated; I25.10 Atherosclerotic heart disease of native coronary artery without angina pectoris; Z95.5 Presence of coronary angioplasty implant and graft; Z79.02 Long term (current) use of antithrombotics/antiplatelets; K21.9 Gastro-esophageal reflux disease without esophagitis; E78.5 Hyperlipidemia, unspecified
CPT/HCPCS: 45378; J2704; J7030

== ENCOUNTER → 2024-07-05 14:08 | Outpatient (BNVA) | payer MEDICAID, SELFPAY | PROVIDERS: PCP Family Medicine; Visit Provider Internal Medicine Cardiovascular Disease | DX: I25.10 Atherosclerotic heart disease of native coronary artery without angina pectoris (principal); I10 Essential (primary) hypertension; E78.5 Hyperlipidemia, unspecified | CPT/HCPCS: 99214 ==

== ENCOUNTER → 2024-11-09 11:46 | Outpatient (BNVA) | payer MEDICAID, SELFPAY | PROVIDERS: PCP Family Medicine; Visit Provider Specialist | DX: G40.109 Localization-related (focal) (partial) symptomatic epilepsy and epileptic syndromes with simple partial seizures, not intractable, without status epilepticus (principal) | CPT/HCPCS: 99213 ==

== ENCOUNTER → 2024-11-11 11:16 | Outpatient (BNVA) | payer MEDICAID, SELFPAY | PROVIDERS: PCP Family Medicine; Referring Provider Family Medicine; Visit Provider Student in an Organized Health Care Education/Training Program | DX: L72.0 Epidermal cyst (principal) | CPT/HCPCS: 99204 ==

== ENCOUNTER 2024-11-30 05:57 | Day surgery (SDC) | payer MEDICAID, SELFPAY ==
[2024-11-30] VITALS (11 sets, daily range): BP systolic 111–129; BP diastolic 72–82; PULSE 75–86; RESP 11–20; TEMP 36.1–36.9; O2SAT 95–100
--- NOTE | 2024-11-30 06:09 | ANES.PREANE2 ---
Pre-Anesthetic Assessment Height/Weight: Height 5 ft 6 in Preop Diagnosis: Back/shoulder mass Operation Date: 11/30/24 07:00 Proposed Procedures p excision of back mass >3cm(Not Applicable) - Fletcher Powers MD Was Beta Darío taken within 24 hours: N/A Was Clonidine taken within 24 hours: N/A Social No alcohol and No tobacco Exam alert, oriented x 3, clear to auscultation bilaterally and regular rate & rhythm Airway Submandibular: within normal limits Cervical ROM: within normal limits Mallampati: Class III Dentition: full Comments: Comments: Núñez Anesthetic Plan ASA status: 3 Anesthesia: General Other: No prior issues with anesthesia NPO since yesterday evening History of epilepsy, on chronic Keppra. Taken this morning. Last seizure was in September of this year. CAD, on chronic Plavix. Stent placed 2013. Plavix taken last negative stress test 2023 Hypertension on lisinopril. BMP sent Prior EKG showing sinus rhythm with old anterior AR Plan for general anesthesia Medications/Allergies Home Medications ?Medication ?Instructions ?Recorded ?Confirmed ?Last Taken ?Type aspirin 81 mg tablet,delayed 81 mg PO DAILY 11/16/19 11/30/24 11/24/24 History release (Aspir-) clopidogrel 75 mg tablet (Plavix) 75 mg PO DAILY 11/16/19 11/30/24 11/24/24 History duloxetine 20 mg capsule,delayed 20 mg PO DAILY 11/16/19 11/30/24 11/29/24 History release lisinopril 20 mg tablet 20 mg PO DAILY 11/16/19 11/30/24 11/29/24 History metoprolol tartrate 25 mg tablet 25 mg PO DAILY 11/16/19 11/30/24 11/30/24 History pantoprazole 40 mg tablet,delayed 40 mg PO DAILY 11/16/19 11/30/24 11/30/24 History release (Protonix) sildenafil 25 mg tablet (Viagra) 25 mg PO DAILY PRN Erectile 11/16/19 11/30/24 Unknown History Dysfunction simvastatin 40 mg tablet 40 mg PO DAILY 11/16/19 11/30/24 11/28/24 History Shower Chair #1 ea 04/30/21 11/30/24 Unknown Rx acetaminophen 500 mg tablet 500 mg PO Q6H PRN Pain (Scale 11/18/22 11/30/24 Unknown History (Tylenol Extra Strength) Score 1-3) gabapentin 600 mg tablet 600 mg PO BID 90 days #180 tabs 11/09/24 11/30/24 11/30/24 Rx levetiracetam 500 mg 1,500 mg (3 x 500 mg) PO BID #540 11/09/24 11/30/24 11/30/24 Rx tablet,extended release 24 hr tabs (Keppra XR) Allergies Allergy/AdvReac Type Severity Reaction Status Date / Time Penicillins Allergy rash Verified 11/29/24 09:49 [facility] Anesthesia Medical History History of colon polyps Hypertension Myocardial infarction Surgical History History of neck surgery Hx of knee surgery Hx of heart surgery History of surgery on arm Family History Other CAD (coronary artery disease) Cancer Hypertension Denies family history of Diabetes Stroke Social History Smoking and tobacco/nicotine status: never used tobacco/nicotine Second hand smoke exposure: Yes Alcohol intake: current Alcohol intake frequency: few times a month Alcohol type: beer Substance/Drug Use: never Data Anesthesia Cardiac Studies: Sestamibi Stress Test (Cardiology) 01/07/24
[2024-11-30] MEDS: sodium chloride 0.9% 1,000 ML 30 ML IV (06:18)
[2024-11-30] MEDS: VANCOMYCIN ADD-Vantage 1,000 MG in 0.9% NaCl ADD-Vantage 250 ML 250 MG IV (06:25)
--- NOTE | 2024-11-30 07:02 | W.PM.OPSUD ---
Surgery/Procedure H&P Update DATE OF PROCEDURE: November 30, 2024 DATE H&P PERFORMED: 11/11/24 H&P UPDATE INFORMATION: I have reviewed H&P completed within last 30 days, I have examined patient prior to procedure and No changes to prior documentation PREOP DIAGNOSIS: Back/shoulder mass PLANNED PROCEDURE: Operation Date: 11/30/24 07:00 Proposed Procedures p excision of back mass >3cm(Not Applicable) - Fletcher Powers MD
[2024-11-30 07:12] LABS: Blood Urea Nitrogen 14 mg/dL (8-23); Calcium 8.8 mg/dL (8.5-10.5); Carbon Dioxide 24 mmol/L (22-29); Chloride 108 mmol/L (98-107); Glomerular Filtration Rate 75.2 mL/min (90-130); Glucose 97 mg/dL (65-115); Osmolality Calculated 298 mOsm/kg (285-295); Sodium 144 mmol/L (136-145)
[2024-11-30] MEDS: lidocaine-epi 1% 20 mL INJ 14 ML INJECTION (07:30)
[2024-11-30] MEDS: neomycin-poly-bacitracin oint 28 gm 1 APPLIC TOPICAL (07:36)
--- NOTE | 2024-11-30 07:39 | P.OP_ITS ---
Operative Report Date of procedure: November 30, 2024 Pre-op diagnosis: Dorsal cervical soft tissue mass Post-op diagnosis: same Procedure done: Dorsal cervical soft tissue mass excision Implants: N/A Specimens removed/disposition: Soft tissue mass sent to pathology Pathology: Soft tissue mass and pathology Surgeon: Fletcher Powers MD Soap Grinder: N/A Anesthesia: MAC Estimated blood loss (mL): 5 Complications: N/A Findings: 4 x 6 cm soft tissue mass resembling an inclusion cyst was excised with its capsule. Condition: stable Disposition: same day Brief History: 64-year-old male presenting with a dorsal cervical soft tissue mass. Discussed risk and benefits and patient agreed to proceed with dorsal cervical soft tissue mass excision. Lesion was marked in preop area with patient's assistance. Procedure: After obtaining consent the patient was brought into the operating room. SCDs were on and functional. Preoperative antibiotics were administered. MAC was induced. Patient was placed on right lateral decubitus. The back of the neck and shoulder was prepped and draped in usual sterile fashion. A 4 cm incision was carried out over the mass using the scalpel. Electrocautery was used to dissect down to the soft tissue mass capsule. Electrocautery was used to dissect out the lesion keeping the capsule intact. The deepest layer involved was the subcutaneous tissues. The 4 x 6 cm soft tissue mass resembling an inclusion cyst was passed off and sent to pathology. Hemostasis was achieved successfully using electrocautery. The deep dermal layer was closed using continuous 2-0 Vicryl. The skin was closed with multiple interrupted vertical mattress sutures using 2-0 nylon. Antibiotic ointment was applied and a sterile island dressing was placed. The patient woke up without any complications.
--- NOTE | 2024-11-30 08:45 | ANE.PACU2 ---
Inpatient post-anesthesia follow up: Airway intact: Yes Vital signs: Temperature 97 F Pulse Rate 75 Respiratory Rate 18 Blood Pressure 123/76 Pulse Oximetry 100 Oxygen Delivery Me thod Room Air Oxygen Flow Rate 8 Fraction of Inspir ed Oxygen Hydration adequate: Yes Nausea and vomiting: No Pain level: 1 Mental status: Baseline
== END 2024-11-30 08:54 | disposition home or self-care (01) ==
PROVIDERS: Student in an Organized Health Care Education/Training Program; PCP Family Medicine; Visit Provider Student in an Organized Health Care Education/Training Program
PROC: (CPT 21552; principal; 2024-11-30 07:00)
DX: L72.0 Epidermal cyst (principal); G40.909 Epilepsy, unspecified, not intractable, without status epilepticus; I25.10 Atherosclerotic heart disease of native coronary artery without angina pectoris; Z79.01 Long term (current) use of anticoagulants; I10 Essential (primary) hypertension; Z79.02 Long term (current) use of antithrombotics/antiplatelets; I25.2 Old myocardial infarction; Z79.82 Long term (current) use of aspirin; Z79.899 Other long term (current) drug therapy; Z95.5 Presence of coronary angioplasty implant and graft; Z88.0 Allergy status to penicillin
CPT/HCPCS: 21552; 36415; 80048; 88304; J1100; J2405; J2704; J3010; J3370; J7030; J7050; J9999

== ENCOUNTER → 2024-12-15 08:36 | Outpatient (BNVA) | payer MEDICAID, SELFPAY | PROVIDERS: PCP Family Medicine; Referring Provider Family Medicine; Visit Provider Student in an Organized Health Care Education/Training Program | DX: Z98.890 Other specified postprocedural states (principal) | CPT/HCPCS: 99024 ==

== ENCOUNTER → 2024-12-29 11:13 | Outpatient (BNVA) | payer MEDICAID, SELFPAY | PROVIDERS: PCP Family Medicine; Visit Provider Student in an Organized Health Care Education/Training Program | DX: L72.0 Epidermal cyst (principal) | CPT/HCPCS: 99024 ==

== ENCOUNTER → 2025-02-07 11:32 | Outpatient (BNVA) | payer MEDICAID, SELFPAY | PROVIDERS: PCP Family Medicine; Visit Provider Internal Medicine Cardiovascular Disease | DX: I25.10 Atherosclerotic heart disease of native coronary artery without angina pectoris (principal); I10 Essential (primary) hypertension; E78.5 Hyperlipidemia, unspecified; Z79.02 Long term (current) use of antithrombotics/antiplatelets; Z79.82 Long term (current) use of aspirin; I25.2 Old myocardial infarction | CPT/HCPCS: 99214 ==

== ENCOUNTER → 2025-08-03 10:57 | Outpatient (BNVA) | payer MEDICAID, SELFPAY | PROVIDERS: PCP Family Medicine; Visit Provider Internal Medicine Cardiovascular Disease | DX: I25.10 Atherosclerotic heart disease of native coronary artery without angina pectoris (principal); I10 Essential (primary) hypertension; E78.5 Hyperlipidemia, unspecified; R06.02 Shortness of breath; I25.2 Old myocardial infarction; R07.9 Chest pain, unspecified; R06.09 Other forms of dyspnea | CPT/HCPCS: 36415; 80048; 83880; 93005; 99214 ==